=== PATIENT | male | born 1985 | race Caucasian/White ===

== ENCOUNTER → 2022-01-18 | Outpatient (CLI) | payer OTHER ==
[~2022-01-18] MED LIST: CEPH500 PO; CIPR500 PO; HYDACE5 PO; IBUP800 PO; Keflex500 MG PO; Mobic15 MG PO; OXYACE5T PO; PROM25 PO; TAMS.4ER PO
[2022-01-18 11:57] LABS: BASOPHILS ABSOLUTE AUTO 0.08 K/mm3 (0.00-0.23); BASOPHILS PERCENT AUTO 1 % (0-2); EOSINOPHILS ABSOLUTE AUTO 0.43 K/mm3 (0.00-0.68); EOSINOPHILS PERCENT AUTO 4 % (0-6); Hematocrit 32.2 % (37.0-53.0); Hemoglobin 10.4 g/dL (13.5-17.5); IMMATURE GRAN ABSOLUTE AUTO 0.05 K/mm3 (0.00-0.10); IMMATURE GRAN PERCENT AUTO 0 % (0-1); LYMPHOCYTES ABSOLUTE AUTO 1.48 K/mm3 (0.84-5.20); LYMPHOCYTES PERCENT AUTO 12 % (21-46); MONOCYTES ABSOLUTE AUTO 0.97 K/mm3 (0.16-1.47); MONOCYTES PERCENT AUTO 8 % (4-13); Mean Corpuscular HGB 24.8 pg (26.0-34.0); Mean Corpuscular HGB Conc 32.3 g/dL (31.5-36.5); Mean Corpuscular Volume 77 fL (80-100); Mean Platelet Volume 8.7 fL (9.1-12.4); NEUTROPHILS ABSOLUTE AUTO 9.44 K/mm3 (1.96-9.15); NEUTROPHILS PERCENT AUTO 76 % (41-73); Platelet Count 443 K/mm3 (150-400); RDW Coefficient Variation 13.7 % (11.7-14.2); RDW Standard Deviation 38.1 fL (35.1-46.3); Red Blood Cell Count 4.19 M/mm3 (4.30-5.90); White Blood Cell Count 12.45 K/mm3 (4.00-11.30)
[2022-01-18 12:06] LABS: Albumin, Blood 2.9 g/dL (3.4-5.0); Albumin/Globulin Ratio 0.6 (0.8-1.8); Bilirubin, Total 0.2 mg/dL (0.1-1.0); Bun/Creatinine Ratio 12.6 (12.0-20.0); Calcium, Blood 8.7 mg/dL (8.5-10.1); Creatinine, Blood 0.95 mg/dL (0.60-1.20); Globulin, Blood 4.7 g/dL (2.2-4.0); Potassium, Blood 4.2 mmol/L (3.5-5.5); Total Protein, Blood 7.6 g/dL (6.4-8.2)
== END ==
LOC: LAB SHORT 11:52
PROVIDERS: Physician Assistant
DX: R07.9 Chest pain, unspecified (principal); D72.829 Elevated white blood cell count, unspecified
CPT/HCPCS: 80053; 85025; 85060

== ENCOUNTER 2022-02-03 09:01 | Inpatient (IN) | payer OTHER ==
[~2022-02-03] VITALS: Ht 182.9 cm; Wt 64.5 kg
[2022-02-03 12:07] LABS: BASOPHILS ABSOLUTE AUTO 0.11 K/mm3 (0.00-0.23); BASOPHILS PERCENT AUTO 1 % (0-2); EOSINOPHILS ABSOLUTE AUTO 0.31 K/mm3 (0.00-0.68); EOSINOPHILS PERCENT AUTO 2 % (0-6); Hematocrit 28.4 % (37.0-53.0); Hemoglobin 9.2 g/dL (13.5-17.5); IMMATURE GRAN ABSOLUTE AUTO 0.11 K/mm3 (0.00-0.10); IMMATURE GRAN PERCENT AUTO 1 % (0-1); LYMPHOCYTES ABSOLUTE AUTO 0.87 K/mm3 (0.84-5.20); LYMPHOCYTES PERCENT AUTO 5 % (21-46); MONOCYTES ABSOLUTE AUTO 1.75 K/mm3 (0.16-1.47); MONOCYTES PERCENT AUTO 10 % (4-13); Mean Corpuscular HGB 23.8 pg (26.0-34.0); Mean Corpuscular HGB Conc 32.4 g/dL (31.5-36.5); Mean Corpuscular Volume 73 fL (80-100); Mean Platelet Volume 9.3 fL (9.1-12.4); NEUTROPHILS ABSOLUTE AUTO 14.78 K/mm3 (1.96-9.15); NEUTROPHILS PERCENT AUTO 82 % (41-73); Platelet Count 596 K/mm3 (150-400); RDW Coefficient Variation 14.2 % (11.7-14.2); RDW Standard Deviation 37.3 fL (35.1-46.3); Red Blood Cell Count 3.87 M/mm3 (4.30-5.90); White Blood Cell Count 17.93 K/mm3 (4.00-11.30)
[2022-02-03 12:24] LABS: Albumin, Blood 2.1 g/dL (3.4-5.0); Albumin/Globulin Ratio 0.5 (0.8-1.8); Bilirubin, Total 0.7 mg/dL (0.1-1.0); Bun/Creatinine Ratio 17.4 (12.0-20.0); Calcium, Blood 8.8 mg/dL (8.5-10.1); Creatinine, Blood 0.69 mg/dL (0.60-1.20); Globulin, Blood 4.3 g/dL (2.2-4.0); Potassium, Blood 3.6 mmol/L (3.5-5.5); Total Protein, Blood 6.4 g/dL (6.4-8.2)
[2022-02-03 16:35] LABS: Percent Saturation 5.7 % (20.0-50.0)
[2022-02-03 16:38] LABS: Automated BF RBC Count 0.248 M/mm3 (0-0); Automated BF WBC Count 2.741 K/mm3 (0-999)
[2022-02-03 16:39] LABS: Body Fluid WBC Count 2741 /mm3 (0-999); RBC Count, Body Fluid 248000 /mm3 (0-0)
[2022-02-03 16:58] LABS: Albumin, Body Fluid 1.8 g/dL; Glucose, Body Fluid 68 mg/dL; Protein, Body Fluid 4.5 g/dL
[2022-02-03 17:03] LABS: Lactate Dehydrogenase, Body Fl 2336 U/L
[2022-02-03 17:07] LABS: Amylase, Body Fluid 7 U/L
[2022-02-03 17:07] LABS: pH, Body Fluid 7.7
[2022-02-03 17:31] LABS: Automated BF RBC Count 0.046 M/mm3 (0-0); Automated BF WBC Count 5.696 K/mm3 (0-999)
[2022-02-03 17:46] LABS: Appearance, Body Fluid Turbid (Clear); Color, Body Fluid Red (None-Yellow); Total Cell Count, Body Fluid 200
[2022-02-03 17:47] LABS: Albumin, Body Fluid 1.8 g/dL; Glucose, Body Fluid 32 mg/dL; Lactate Dehydrogenase, Body Fl 846 U/L; Protein, Body Fluid 4.2 g/dL
[2022-02-03 17:53] LABS: Body Fluid WBC Count 5696 /mm3 (0-999); RBC Count, Body Fluid 46000 /mm3 (0-0)
[2022-02-03 17:54] LABS: Appearance, Body Fluid Cloudy (Clear); Color, Body Fluid Red (None-Yellow)
[2022-02-03 18:03] LABS: pH, Body Fluid 7.3
[2022-02-03 18:21] LABS: Total Cell Count, Body Fluid 100
--- NOTE | 2022-02-03 19:27 | NUR ---
SUMMARY NEURO: WNL, MUSK: GENERALIZEED WEAKNESS, LOW STAMINA LUNG: THORACENTESIS TODAY. FLUID SENT FOR PATHOLOGY. PT ON 4LNC. GI: PT STATES HASNT HAD A BM IN TWO WEEKS : PT STATES DARK NAVDEEP URINE RECENTLY CARD: SINUS TACH, FAINT RT TIBIAL PULSE. PERICARDIAL DRAIN IN PLACE.
--- NOTE | 2022-02-03 21:57 | NUR ---
UPDATE TALKED WITH DR GALO GIVING HIM AN UPDATE ON THE PATIENT. PT IS "FEELING BETTER", SOME DISCOMFORT AT DRAIN SITE WHEN COUGHING AND TENDER AROUND SITE BUT NO OTHER PAIN NOTED. PT STATES THAT HE CAN BREATH MORE EASILY BUT STILL HAS TROUBLE WHEN LAYING DOWN. ALSO, THE HOSPITALIST NOTE MENTIONED STARTING HEPARIN GTT FOR DVT, DISSCUSED THIS WITH DR GALO WHO STATED THAT HEPARIN NOT TO BE STARTED UNTIL AFTER THE PERICARDIAL DRAIN IS REMOVED.
--- NOTE | 2022-02-03 22:09 | NUR ---
ASSUMPTION OF CARE: ASSUMED CARE OF PT AT 1900. PT IS AWAKE AND A&O X 4; PT ON BEDREST AND COMPLIANT WITH ACTIVITY LIMITATIONS. PT ON 4 L O2 VIA NC WITH O2 LEVELS MAINTAINING 94<, AND RR 20-24. PT HAS NO C/O SOB AT THIS TIME. S1/S2 ASCULTATED; PT HAS NO C/O CHEST PAIN AT THIS TIME. HR IN THE 110'S AND SBP IN THE 120'S. THERE IS A PERICARDIAL DRAIN PRESENT; SITE LOOKS C/D/I. DRAIN IS PATENT AND DRAINING TO GRAVITY WITH 100 MLS OF SEROSANGANIOUS PRESENT. PT STATES THAT THERE IS TENDERNESS WHEN PALPATED AND PAIN WHEN COUGHING AT SITE. PT HAS HYPERACTIVE BS IN ALL QUADRANTS; NO C/O OF ABD PAIN OR N/V. PT HAS PPP X 4; ALL EXTREMITIES ARE WARM AND CAP REFIL REMAINS < 3 SECONDS. PT HAS FULL ROM. PT STATES INCREASING ACTIVITY INTOLERANCE OVER THE LAST COUPLE OF WEEKS. SCD PLACED TO THE LEFT CALF AT THIS TIME. PIV IN THE L&R FOREARM; FLUSHED WITH 10 ML SALINE AND CAPS REPLACED. TYRESE CHOU CALLED DR GALO TO CONFIRM WHETHER OR NOT HEPARIN WOULD BE INITIATED R/T R. LEG DVT; DR GALO DOES NOT WANT HEPARIN STARTED DUE TO PERICARDIAL DRAIN. PT RESTING AT THIS TIME AND CALL LIGHT WITHIN REACH. WILL CONTINUE TO MONITOR.
[2022-02-04 03:43] LABS: BASOPHILS ABSOLUTE AUTO 0.11 K/mm3 (0.00-0.23); BASOPHILS PERCENT AUTO 1 % (0-2); EOSINOPHILS ABSOLUTE AUTO 0.66 K/mm3 (0.00-0.68); EOSINOPHILS PERCENT AUTO 4 % (0-6); Hematocrit 30.7 % (37.0-53.0); Hemoglobin 10.2 g/dL (13.5-17.5); IMMATURE GRAN ABSOLUTE AUTO 0.11 K/mm3 (0.00-0.10); IMMATURE GRAN PERCENT AUTO 1 % (0-1); LYMPHOCYTES PERCENT AUTO 5 % (21-46); MONOCYTES ABSOLUTE AUTO 1.85 K/mm3 (0.16-1.47); MONOCYTES PERCENT AUTO 11 % (4-13); Mean Corpuscular HGB Conc 33.2 g/dL (31.5-36.5); Mean Corpuscular Volume 72 fL (80-100); NEUTROPHILS ABSOLUTE AUTO 13.63 K/mm3 (1.96-9.15); NEUTROPHILS PERCENT AUTO 79 % (41-73); Platelet Count 607 K/mm3 (150-400); RDW Coefficient Variation 14.2 % (11.7-14.2); RDW Standard Deviation 36.8 fL (35.1-46.3); Red Blood Cell Count 4.25 M/mm3 (4.30-5.90); White Blood Cell Count 17.26 K/mm3 (4.00-11.30)
[2022-02-04 04:05] LABS: Albumin, Blood 1.8 g/dL (3.4-5.0); Albumin/Globulin Ratio 0.4 (0.8-1.8); Bilirubin, Total 0.6 mg/dL (0.1-1.0); Creatinine, Blood 0.62 mg/dL (0.60-1.20); Globulin, Blood 4.4 g/dL (2.2-4.0); Potassium, Blood 3.8 mmol/L (3.5-5.5); Total Protein, Blood 6.2 g/dL (6.4-8.2)
--- NOTE | 2022-02-04 05:45 | NUR ---
SHIFT SUMMARY: NO ACUTE CHANGES THIS SHIFT. PT REMAINS A&O X 4, AND HAS NO C/O PAIN AT THIS TIME. PT WAS IN AND OUT OF SLEEP THROUGHOUT THE NIGHT WITH MODERATE DIAPHORESIS THROUGHOUT THE NIGHT. PT STATES THAT THIS IS WITHIN HIS NORMAL SLEEPING HABITS. PT HAS HAD GOOD URINE OUTPUT THIS SHIFT. PT REMAINS ON 4L O2 VIA NC; LUNG SOUNDS ARE CLEAR THROUGHOUT. PT HR IN THE 100'S AND SBP 110-120. PT ASKED ABOUT DISCAHRGING AND QUESTIONS ANSWERED ABOUT CRITERIA TO MEET BEFORE DISCHARGE CAN BE AN OPTION. WILL CONTINUE TO MONITOR UNTIL ONCOMING NURSE ARRIVES.
--- NOTE | 2022-02-04 07:15 | NUR ---
TOOK OVER CARE OF PT AT 0700, PT RESTING ON 4L NC, O2 SATS AT 90%
--- NOTE | 2022-02-04 11:10 | NUR ---
Supportive visit this AM. Pt resting in bed and appears mildly anxious. Pt reports bed being uncomfortable and is requesting to get out of bed. Reviewed plan of care and offered supportive listening. Spoke with Pt's Primary RN Cristin and discussed case. Relayed Pt's request to sit in chair. Palliative Care will remain available for supportive and therapeutic visits as needed.
[2022-02-04 11:44] LABS: Anti-Xa UFH, PHA Monitoring <0.10 IU/mL; International Normalized Ratio 1.35; Prothrombin Time Results 13.9 Sec (9.7-11.5)
--- NOTE | 2022-02-04 18:15 | NUR ---
SUMMARY NEURO: WNL CARD:SINUS TACH 100-110'S. PERICARDIAL DRAIN REMOVED THIS AM. RT TIBIAL PULSE FAINT, HEPARIN GTT STARTED WITH CARDIOLOGY APPROVAL. LUNGS: INTERMITTENT PLEURAL RUB SOUNDS IN RUL AND RLL. RML AND MARY CLEAR. LLL DIMINISHED. PT ON 5LNC THAT IS HUMIDIFIED. PT DENIES SOB. GI: NO BM TODAY, HYPOACTIVE BOWELS SOUNDS. VERY POOR APPETITE. PT ONLY ABLE TO TOLERATE A FEW BITES AT A TIME. ENCOURAGE NUTRITION SHAKES : WNL
--- NOTE | 2022-02-04 19:40 | NUR ---
ASSUMED CARE OF PT AT 1900. REPORT RECEIVED AT BEDSIDE. PT PRESENTS IN BED. ALERT AND ORIENTED. PLEASANT AND COOPERATIVE WITH CARE AND ASSESSMENT. IS MILDLY NAUSEAS, AND CLAIMS HE HAS SOME PAIN IN LEG AND BACK. WILL CHECK PRN EMAR FOR INTERVENTION. WILL REVIEW CHART AND PLAN OF CARE FOR THIS PT.
--- NOTE | 2022-02-05 00:40 | NUR ---
MEDICATED PT WITH 25 MCG FENTANYL FOR COMPLAINTS OF RIGHT CALF PAIN. PT DOES STATE THAT THE MAJORITY OF HIS PAIN COMES FROM HIS BACK AND NOT BEING ABLE TO GET COMFORTABLE IN BED. MULTIPLE ATTEMPTS TO GET PT REPOSITIONED WHEREAS HIS BACK PAIN WOULD NOT IMPROVE. DID OFFER PT TO BE IN RECLINER CHAIR. HE ACCEPTED. PIVOT TRANSFER TO RECLINER CHAIR. PT STATES THIS IS MUCH MORE COMFORTABLE FOR HIS BACK. CALL LIGHT GIVEN TO PT. HEPARIN CONTINUES PER PHARMACY. WILL DO RECHECK AT 0200 THIS AM.
[2022-02-05 02:01] LABS: BASOPHILS ABSOLUTE AUTO 0.08 K/mm3 (0.00-0.23); BASOPHILS PERCENT AUTO 1 % (0-2); EOSINOPHILS ABSOLUTE AUTO 0.59 K/mm3 (0.00-0.68); EOSINOPHILS PERCENT AUTO 3 % (0-6); Hematocrit 27.4 % (37.0-53.0); Hemoglobin 9.3 g/dL (13.5-17.5); IMMATURE GRAN ABSOLUTE AUTO 0.11 K/mm3 (0.00-0.10); IMMATURE GRAN PERCENT AUTO 1 % (0-1); LYMPHOCYTES ABSOLUTE AUTO 1.28 K/mm3 (0.84-5.20); LYMPHOCYTES PERCENT AUTO 7 % (21-46); MONOCYTES ABSOLUTE AUTO 1.59 K/mm3 (0.16-1.47); MONOCYTES PERCENT AUTO 9 % (4-13); Mean Corpuscular HGB 24.3 pg (26.0-34.0); Mean Corpuscular HGB Conc 33.9 g/dL (31.5-36.5); Mean Corpuscular Volume 72 fL (80-100); Mean Platelet Volume 8.8 fL (9.1-12.4); NEUTROPHILS ABSOLUTE AUTO 13.66 K/mm3 (1.96-9.15); NEUTROPHILS PERCENT AUTO 79 % (41-73); Platelet Count 610 K/mm3 (150-400); RDW Coefficient Variation 14.1 % (11.7-14.2); RDW Standard Deviation 35.9 fL (35.1-46.3); Red Blood Cell Count 3.82 M/mm3 (4.30-5.90); White Blood Cell Count 17.31 K/mm3 (4.00-11.30)
[2022-02-05 02:20] LABS: Albumin, Blood 1.7 g/dL (3.4-5.0); Anion Gap 7 mmol/L (6-16); Blood Urea Nitrogen 13 mg/dL (8-24); Bun/Creatinine Ratio 21.1 (12.0-20.0); CO2, Blood 24 mmol/L (21-32); Chloride, Blood 102 mmol/L (98-108); Creatinine, Blood 0.62 mg/dL (0.60-1.20); Glomerular Filtration Rate 129 (60-); Glucose, Blood 114 mg/dL (70-99); Phosphorus, Blood 3.1 mg/dL (2.5-4.9); Potassium, Blood 3.7 mmol/L (3.5-5.5); Sodium, Blood 133 mmol/L (136-145)
[2022-02-05] MEDS ORDERED: HYDROCODONE-AC1 EA18 PO (04:47)
--- NOTE | 2022-02-05 04:52 | NUR ---
CALL MADE TO DR SCHMITT CONCERNING CONTINUED PAIN IN RIGHT LEG, AND BACK. ORDER FOR 1 MG DILAUDID PRN AND OXYCONTIN SCHEDULED BID. TEACHING DONE WITH PT ON THIS PAIN MANAGEMENT REGIMINE, AND PRECAUTIONS WITH MEDS. ALSO SPOKE ABOUT POTENTIAL FOR CONSTIPATION. PT VERBALIZES UNDERSTANDING. MEDICATED PT WITH DILAUDID FOR IMMEDIATE RELIEF, AND WITH OXYCONTIN FOR CONTINUED RELIEF. PT STATES THAT THIS HAS BEEN VERY HELPFUL TO RELIEVE PAIN. PT CURRENTLY BACK TO BED. MADE USE OF ADDITIONAL PILLOWS FOR COMFORT. WILL CONTINUE TO MONITOR PT.
--- NOTE | 2022-02-05 06:38 | NUR ---
PT STATES THAT THE DILAUDID REMAINS VERY AFFECTIVE. HAS BEEN ABLE TO SLEEP SOME. NO OOZING OR HEMATOMA FROM PERICARDIAL ACCESS SITE. DRESSING REMAINS INTACT. THORACENTISIS SITE TO RIGHT POSTERIALATERAL SITE CDI. WILL CONTINUE TO MONITOR PT AND WILL REPORT OFF TO ONCOMING RN.
--- NOTE | 2022-02-05 09:02 | NUR ---
Care assumed 0700 Heparin GTT @ 24 U/KG/HR infusing via right forearm IV. A/O X 4. Calm/coopertive. Pt denies having pain at this time and is comfortable in bed. Denies SOB. Pericardial drain site dressing c/d/i. Currently refusing to wear left SCD due to discomfort. On 5 L via NC, SPO2 > 90%. NSR. VSS. Will continue to monitor. Call light within reach. Aggie, patients partner in room as well. All questions answered and updated on pt care.
--- NOTE | 2022-02-05 09:26 | NUR ---
Dose increase Heparin GTT New infusion rate 26 U/KG/HR with bolus of 1750 units. Verified with Verona Ross RN.
--- NOTE | 2022-02-05 09:48 | NUR ---
Provider visit ~ Dr. Patel Plan is to compelte biopsy tomorrow and determine treatment plan from there. Possible discharge after that. Pt would like to be discharged soon.
--- NOTE | 2022-02-05 18:34 | NUR ---
Shift Summary Heparin GTT 28 U/KG/HR, infusing via right forarm IV. Pt states having pain 5/10 once today in right leg, treated per emar. Offered bed bath and pt declined. Appears to be anxious about biopsy tomorrow in regards to pain, educated on pt receiving adequate pain management prior to biopsy. Pt states understanding. VSS. Partner, Aggie, at bedside throughout the day. Mother and step-father in to see patient, updated on care. Pt has poor PO intake, states, " I am just a picky eater." Offered snacks (pudding and ensure) throughout the day. VSS. Will report to nightshift.
--- NOTE | 2022-02-05 19:30 | NUR ---
ASSUMPTION OF CARE REPORT RECEIVED AT THE BEDSIDE WITH DAYSPAFT NURSE. PT PRESENTS IN BED. PT APPEARS PALE, BUT IS CALM AND PLEASANT/APPROPRIATE TO SITUATION. PT IS ALERT, ON 4-5LNC WITH RR EQUAL AND UNLABORED. PT HAS A SMALL DRESSING WHERE HIS PERICARDIAL DRAIN WAS. PT PALE, BUT STATES HE FEELS OK. PIV INFUSING HEPARIN GTT IN RIGHT ARM. ADDITIONAL PIV IN LEFT FA. PT VOIDING SPONTANEOUSLY AND IS ABLE TO TURN HIMSELF IN BED. VITALS ARE STABLE. WILL CONTINUE TO MONITOR.
[2022-02-06 03:47] LABS: BASOPHILS ABSOLUTE AUTO 0.09 K/mm3 (0.00-0.23); BASOPHILS PERCENT AUTO 1 % (0-2); EOSINOPHILS PERCENT AUTO 4 % (0-6); Hemoglobin 9.8 g/dL (13.5-17.5); IMMATURE GRAN ABSOLUTE AUTO 0.15 K/mm3 (0.00-0.10); IMMATURE GRAN PERCENT AUTO 1 % (0-1); LYMPHOCYTES ABSOLUTE AUTO 1.46 K/mm3 (0.84-5.20); LYMPHOCYTES PERCENT AUTO 9 % (21-46); MONOCYTES PERCENT AUTO 11 % (4-13); Mean Corpuscular HGB 23.4 pg (26.0-34.0); Mean Corpuscular HGB Conc 31.6 g/dL (31.5-36.5); Mean Corpuscular Volume 74 fL (80-100); Mean Platelet Volume 8.8 fL (9.1-12.4); NEUTROPHILS ABSOLUTE AUTO 12.11 K/mm3 (1.96-9.15); NEUTROPHILS PERCENT AUTO 74 % (41-73); Platelet Count 673 K/mm3 (150-400); RDW Coefficient Variation 14.2 % (11.7-14.2); RDW Standard Deviation 37.6 fL (35.1-46.3); Red Blood Cell Count 4.19 M/mm3 (4.30-5.90); White Blood Cell Count 16.31 K/mm3 (4.00-11.30)
[2022-02-06 04:18] LABS: Albumin, Blood 1.8 g/dL (3.4-5.0); Albumin/Globulin Ratio 0.4 (0.8-1.8); Bilirubin, Total 0.5 mg/dL (0.1-1.0); Bun/Creatinine Ratio 20.3 (12.0-20.0); Calcium, Blood 8.6 mg/dL (8.5-10.1); Creatinine, Blood 0.64 mg/dL (0.60-1.20); Globulin, Blood 4.6 g/dL (2.2-4.0); Potassium, Blood 4.1 mmol/L (3.5-5.5); Total Protein, Blood 6.4 g/dL (6.4-8.2)
--- NOTE | 2022-02-06 05:48 | NUR ---
SHIFT SUMMARY PT REMAINED STABLE THROUGHOUT THE NIGHT ON 4L NC. PT HAS SLEPT INTERMITTENTLY. PAIN HAS BEEN WELL CONTROLLED WITH OXY AND PRNS. PT STILL APPEARS PALE, SLIGHTLY TACHYPNEIC, BUT SATS REMAIN >93% HEPARIN GTT REMAINS AT 28 UNITS/KG/HR. ANTI-Xa HAS BEEN THERAPEUTIC X2 OVERNIGHT SO PATIENT WILL BE A DAILY CHECK ON ANTI-Xa. VITALS HAVE REMAINED STABLE, OTHERWISE PT HAD AN UNEVENTFUL NIGHT. WILL PASS REPORT OFF TO AM NURSE WHEN AVAILABLE.
--- NOTE | 2022-02-06 08:32 | NUR ---
INITIAL ASSESSMENT PATIETN ALERT AND ORIENTED X 4, AFEBRILE. PATIENT COMPLAINS OF R LEG AND BACK PAIN. PATIENT RECEIVING SCHEDULED PAIN MEDICATIONS. PATIENT HAS PRN PAIN MEDS AVAILABLE ON EMAR. PATIENT CALM AND COOPERATIVE. FLAT AFFECT NOTED. PATIENT CACHECTIC AND WEAK. PATIENT SATTING 90% AND GREATER ON RA. RHONCHI NOTED IN UPPER LOBES, DIM IN LOWER LOBES. MOIST COUGH NOTED. PATIENT IN ST, HR AT 100. SBP IN THE 1-TEENS. DVT TO R LEG PER REPORT. HYPERACTIVE BOWEL SOUNDS NOTED. PATIENT STATES LAST BM ON 02/02. PATIENT ON REGULAR DIET. PATIENT HAS POOR APPETITE. PATIENT USES URINAL INDEPENDENTLY TO VOID. SKIN PALE. TEGADERM TO LOWER MID CHEST. HEPARIN INFUSING AT 28 UNITS/ KG/ HOUR. BED LOW, CALL LIGHT IN REACH. GF AT BEDSIDE. WILL CONTINUE TO MONITOR PATIENT FREQUENTLY THROUGHOUT SHIFT.
--- NOTE | 2022-02-06 12:00 | NUR ---
PATIENT AFEBRILE. HR IN THE 90S. SBP IN THE 1-TEENS. NO COMPLAINTS AT THIS TIME. WILL CONTINUE TO MONITOR.
--- NOTE | 2022-02-06 12:31 | NUR ---
SPOKE TO DR. LEO ABOUT PATIENT NOT HAVING BM FOR 4 DAYS NOW. ORDERS RECEIVED FOR MEDICATION.
--- NOTE | 2022-02-06 16:40 | NUR ---
PATIENT HAS TEMP OF 99.1 DEGREES FAHRENHEIT. HR AT 100. SBP IN THE 1-TEENS. PATIENT SATTING 90% AND GREATER ON 2 L NC. NO OTHER ACUTE CHANGES TO NOTE ON AT THIS TIME. NO COMPLAINTS. WILL CONTINUE TO MONITOR.
--- NOTE | 2022-02-06 17:58 | NUR ---
SHIFT SUMMARY PATIENT REMAINED ALERT AND ORIENTED X 4. PATIENT REMAINED CALM , COOPERTIVE AND WITH FLAT AFFECT. PATIENT REMAINED WEAK BUT ABLE TO MOVE TO CHAIR WITH 1 PA. PHYSICAL THERAPY WORKED WITH PATIENT THIS SHIFT. PATIENT HAD TMAX OF 99.1 DEGREES FAHRENHEIT THIS SHIFT. PAIN SEEMED WELL CONTROLLED BY SCHEDULED OXY. PATIENT DECREASED FROM 4 L NC TO 2 L NC AND REMAINS SATTING 90% AND GREATER. PATIENT REMAINED SR TO ST, HR 90S TO LOW 100S. SBP 1-TEENS TO 120S. PATIENT REMAINS WITH POOR APPETITE. NUTRITION CONSULT ORDERED THIS SHIFT AND THEY DID GET IN TO SEE PATIENT. NO BM THIS SHIFT FOR SINCE 02/02. BOWEL CARE ORDERED THIS SHIFT AND STARTED. GOOD URINE OUTPUT THIS SHIFT. HEPARIN REMAINS AT 28 UNITS/ KG/ HOUR. PATIENT REFUSED CHAIR MOST OF THE DAY AND REFUSED BED BATH. PATIENT HAD LYMPNODE BIOPSY TODAY. NO COMPLAINTS AT THIS TIME. CALL LIGHT IN REACH. PATIENT WILL BE TRANSFERRING TO PCU, ROOM 18 SHORTLY.
--- NOTE | 2022-02-06 18:24 | NUR ---
PATIENT SUCCESSFULLY TRANSFERRED TO PCU. ALL BELONGINGS SENT WITH PATIENT.
--- NOTE | 2022-02-06 18:51 | NUR ---
TRANSFER/ASSUMPTION OF CARE: PT TRANSFERED TO PCU FROM ICU, ARRIVES APPROX 1825. PT TRANSFERS SELF FROM W/C TO BEDSIDE CHAIR W/OUT DIFFICULTY. PT ORIENTED TO ROOM. HEPARIN INFUSING PER ORDERS. WILL CONTINUE TO MONITOR AND TREAT ACCORDINGLY UNTIL CHANGE OF SHIFT.
[2022-02-07 03:09] LABS: BASOPHILS ABSOLUTE AUTO 0.09 K/mm3 (0.00-0.23); BASOPHILS PERCENT AUTO 1 % (0-2); EOSINOPHILS PERCENT AUTO 3 % (0-6); Hematocrit 30.6 % (37.0-53.0); IMMATURE GRAN ABSOLUTE AUTO 0.12 K/mm3 (0.00-0.10); IMMATURE GRAN PERCENT AUTO 1 % (0-1); LYMPHOCYTES ABSOLUTE AUTO 1.31 K/mm3 (0.84-5.20); LYMPHOCYTES PERCENT AUTO 9 % (21-46); MONOCYTES ABSOLUTE AUTO 1.72 K/mm3 (0.16-1.47); MONOCYTES PERCENT AUTO 12 % (4-13); Mean Corpuscular HGB 23.9 pg (26.0-34.0); Mean Corpuscular HGB Conc 32.7 g/dL (31.5-36.5); Mean Corpuscular Volume 73 fL (80-100); Mean Platelet Volume 8.5 fL (9.1-12.4); NEUTROPHILS ABSOLUTE AUTO 10.95 K/mm3 (1.96-9.15); NEUTROPHILS PERCENT AUTO 75 % (41-73); Platelet Count 634 K/mm3 (150-400); RDW Coefficient Variation 14.3 % (11.7-14.2); RDW Standard Deviation 37.3 fL (35.1-46.3); Red Blood Cell Count 4.19 M/mm3 (4.30-5.90); White Blood Cell Count 14.69 K/mm3 (4.00-11.30)
[2022-02-07 04:14] LABS: Albumin, Blood 1.9 g/dL (3.4-5.0); Albumin/Globulin Ratio 0.4 (0.8-1.8); Bilirubin, Total 0.4 mg/dL (0.1-1.0); Bun/Creatinine Ratio 15.3 (12.0-20.0); Calcium, Blood 9.2 mg/dL (8.5-10.1); Creatinine, Blood 0.85 mg/dL (0.60-1.20); Globulin, Blood 4.8 g/dL (2.2-4.0); Potassium, Blood 4.6 mmol/L (3.5-5.5); Total Protein, Blood 6.7 g/dL (6.4-8.2)
--- NOTE | 2022-02-07 06:32 | NUR ---
SHIFT SUMMARY PT ALERT AND ORIENTED X4. NO ACUTE EVENTS OVERNIGHT. BP STABLE. AFEBRILE. SR/ST 90-100'S. ON 2L NC SATS OVER 92%. PARTNER IN ROOM OVERNIGHT. ADEQUATE PAIN CONTROL WITH SCHEDULED OXYCODONE. RESTING COMFORTABLE MOST OF NIGHT. HEP GTT INFUSING. IN BED SLEEPING WITH CALL ALARM AT SIDE. WILL CONTINUE TO MONITOR UNTIL REPORT GIVEN TO DAYSHIFT RN
[2022-02-07] MEDS ORDERED: OXYC10ER PO (09:44)
[2022-02-07] MEDS ORDERED: ALBU2.5V5 INH (09:44)
[2022-02-07] MEDS ORDERED: DOCUZEN 8.6-501 EACH PO (09:44)
[2022-02-07] MEDS ORDERED: METAMUCIL POWD798 GM PO (09:45)
[2022-02-07] MEDS ORDERED: XARELTO15 MG PO (09:47)
[2022-02-07] MEDS ORDERED: XARELTO20 MG PO (09:47)
[2022-02-07] MEDS ORDERED: ALBU90OI INH (10:49)
--- NOTE | 2022-02-07 11:34 | NUR ---
PT PENDING DISCHARGE. IVS AND TELE HAVE BEEN DISCONTINUED. HE IS AWAITING DELIVERY OF WALKER TO ROOM BY MARCELLO. PT S.O. AT BEDSIDE. NO ACUTE DISTRESS.
--- NOTE | 2022-02-07 12:01 | NUR ---
UPDATE: PT COMES OUT OF HIS ROOM, STATES "I DON'T WANT TO WAIT ANYMORE FOR THE WALKER TO BE DELIVERED. MY MOM IS OUTSIDE WAITING FOR ME AND WE HAVE A WALKER AT HOME I CAN USE". THIS RN OBTAINS HOME ADDRESS FOR POTENTIAL WALKER DELIVERY, [facility] HAS BEEN NOTIFIED VIA TELEPHONE CALL. PT AMBULATES FROM UNIT W/OUT INCIDENT.
[2022-02-14] MEDS ORDERED: OXAYDO5 M1 PO (20:27)
[2022-02-21] MEDS ORDERED: Nicoderm Cq1 EAC1 TOP (09:09)
[2022-02-21] MEDS ORDERED: MIRALAX17 GM PO (09:10)
[2022-02-21] MEDS ORDERED: PANT40 PO (09:10)
[2022-02-21] MEDS ORDERED: SODCHL1 PO (09:11)
[2022-02-21] MEDS ORDERED: BUME1 PO (09:11)
== END 2022-02-07 11:54 | disposition home or self-care (01) | DRG 829 ==
LOC: ER 09:01 → ICUW 14:52 → PCU 02-06 17:35
PROVIDERS: Emergency Medicine; Internal Medicine; Internal Medicine Cardiovascular Disease; Student in an Organized Health Care Education/Training Program; ADMIT Internal Medicine
PROC: 0W9930Z Drainage of Right Pleural Cavity with Drainage Device, Percutaneous Approach (ICD-10-PCS; principal; 2022-02-03)
PROC: 0W993ZX Drainage of Right Pleural Cavity, Percutaneous Approach, Diagnostic (ICD-10-PCS; 2022-02-03)
PROC: 0W9D30Z Drainage of Pericardial Cavity with Drainage Device, Percutaneous Approach (ICD-10-PCS; 2022-02-03)
PROC: 0W9D3ZX Drainage of Pericardial Cavity, Percutaneous Approach, Diagnostic (ICD-10-PCS; 2022-02-03)
PROC: 07B13ZX Excision of Right Neck Lymphatic, Percutaneous Approach, Diagnostic (ICD-10-PCS; 2022-02-06)
DX: C79.89 Secondary malignant neoplasm of other specified sites (principal); J96.01 Acute respiratory failure with hypoxia; C34.90 Malignant neoplasm of unspecified part of unspecified bronchus or lung; C77.0 Secondary and unspecified malignant neoplasm of lymph nodes of head, face and neck; E87.1 Hypo-osmolality and hyponatremia; I82.4Z1 Acute embolism and thrombosis of unspecified deep veins of right distal lower extremity; R65.10 Systemic inflammatory response syndrome (SIRS) of non-infectious origin without acute organ dysfunction; Z51.5 Encounter for palliative care; J91.0 Malignant pleural effusion; C78.2 Secondary malignant neoplasm of pleura; F17.210 Nicotine dependence, cigarettes, uncomplicated; D63.8 Anemia in other chronic diseases classified elsewhere; Z88.0 Allergy status to penicillin
CPT/HCPCS: 32555; 33016; 36415; 38505; 71045; 71260; 76937; 76942; 80053; 80069; 82042; 82150; 82607; 82728; 82746; 82945; 83540; 83550; 83615; 83690; 83986; 84157; 85025; 85520; 85610; 85730; 87070; 87102; 87205; 87252; 87254; 88108; 88305; 88341; 88342; 89051; 93306; 93308; 93321; 93971; 94664; 94761; 94762; 97110; 97162; 99152; 99153; 99285-25; A9270; C1729; C1769; C1894; J0690; J1170; J1644; J2060; J2250; J3010; J7030; J7040; Q9967

== ENCOUNTER 2022-02-14 05:51 | Inpatient (IN) | payer OTHER ==
[~2022-02-14] VITALS: Ht 182.9 cm; Wt 62.1 kg
[~2022-02-14 05:51] MED LIST changes: +ALBU2.5V5 INH; +ALBU90OI INH; +DOCUZEN 8.6-501 EACH PO; +HYDROCODONE-AC1 EA18 PO; +METAMUCIL POWD798 GM PO; +OXYC10ER PO; +XARELTO15 MG PO; +XARELTO20 MG PO
[2022-02-14 07:51] LABS: BASOPHILS ABSOLUTE AUTO 0.06 K/mm3 (0.00-0.23); BASOPHILS PERCENT AUTO 0 % (0-2); EOSINOPHILS ABSOLUTE AUTO 0.27 K/mm3 (0.00-0.68); EOSINOPHILS PERCENT AUTO 1 % (0-6); Hematocrit 27.6 % (37.0-53.0); Hemoglobin 8.8 g/dL (13.5-17.5); IMMATURE GRAN ABSOLUTE AUTO 0.16 K/mm3 (0.00-0.10); IMMATURE GRAN PERCENT AUTO 1 % (0-1); LYMPHOCYTES ABSOLUTE AUTO 0.86 K/mm3 (0.84-5.20); LYMPHOCYTES PERCENT AUTO 4 % (21-46); MONOCYTES ABSOLUTE AUTO 2.25 K/mm3 (0.16-1.47); MONOCYTES PERCENT AUTO 11 % (4-13); Mean Corpuscular HGB Conc 31.9 g/dL (31.5-36.5); Mean Corpuscular Volume 72 fL (80-100); Mean Platelet Volume 8.7 fL (9.1-12.4); NEUTROPHILS ABSOLUTE AUTO 17.02 K/mm3 (1.96-9.15); NEUTROPHILS PERCENT AUTO 83 % (41-73); Platelet Count 611 K/mm3 (150-400); RDW Coefficient Variation 14.6 % (11.7-14.2); RDW Standard Deviation 37.5 fL (35.1-46.3); Red Blood Cell Count 3.82 M/mm3 (4.30-5.90); White Blood Cell Count 20.62 K/mm3 (4.00-11.30)
[2022-02-14 08:09] LABS: Albumin, Blood 1.9 g/dL (3.4-5.0); Albumin/Globulin Ratio 0.4 (0.8-1.8); Bilirubin, Total 0.5 mg/dL (0.1-1.0); Bun/Creatinine Ratio 24.4 (12.0-20.0); Calcium, Blood 8.7 mg/dL (8.5-10.1); Creatinine, Blood 0.66 mg/dL (0.60-1.20); Magnesium, Blood 2.1 mg/dL (1.6-2.4); Potassium, Blood 4.3 mmol/L (3.5-5.5); Total Protein, Blood 6.9 g/dL (6.4-8.2)
[2022-02-14 08:35] LABS: Influenza A, PCR NEGATIVE (NEGATIVE); Influenza B, PCR NEGATIVE (NEGATIVE); Resp Syncytial Virus, PCR NEGATIVE (NEGATIVE); SARS-Cov-2 (COVID-19) PCR, MMC NEGATIVE (NEGATIVE)
[2022-02-14 10:23] LABS: International Normalized Ratio 1.42; Prothrombin Time Results 14.6 Sec (9.7-11.5)
--- NOTE | 2022-02-14 14:50 | NUR ---
Pt is a 36 y.o. male with new diagnoses of lung cancer. He participated in an initial interview with me today, and was alert, oriented and pleasant. He does admit to feeling "scared", and also states he just found out officially today that it is cancer "for sure". He states he doesn't know what stage or "how bad" it is. He lives at home with his grandmother, mom and s/o Aggie. Pt is having a chest tube placed today, and is eager to begin a pain medication regimen. He is cachectic, states he has a poor appetite and little energy. He is currently using oxygen, he reports he was in ICU last week, returned to ED today due to increased SOB. No treatment plan has been established yet per pt; he states he's looking forward to being started on a treatment plan with Dr. Ray's office. Pt is open to continuing visits with Palliative care. He may be d/c'd home tomorrow if he tolerates chest tube and SOB has improved. My concern is the pt is unaware of the extent of his illness, due in part to low medical literacy. Will discuss this with Dr. Griffiths today.
--- NOTE | 2022-02-14 16:03 | NUR ---
Spiritual Care attempted. Pt. was meeting with Care Management. Family members are present. Will remain available to Pt.
--- NOTE | 2022-02-14 16:52 | NUR ---
Collaberated with Dr. Arce' office and Dr. Griffiths this afternoon. Concerns discussed, and Dr. Arce recommending continue current plan of care, and is awaiting results of genetic testing to determine treatment plan. Prognostication based on current clinical status: KPS: 40% NYHA: Class IV Albumin: 1.9 BMI: 18.5 (6ft tall 136lbs) Pt is at high risk for readmission.
--- NOTE | 2022-02-14 19:28 | NUR ---
SHIFT SUMMARY 1130 RECEIVED PT TO 337 VIA GURNEY FROM ER. ADMITTED FOR BL PLEURAL EFFUSIONS AND SOB. PER REPORT FROM DARLENE CHOU, PT RECENTLY IN ICU FOR FLUID AROUND THE LUNGS AND HEART. NEW DX OF LUNG CA. CANCER NOT STAGED YET AND NO TX STARTED. DR JAMES AND DR HUYNH TO COME IN TOMORROW AND DISCUSS NEXT STEPS IN PLAN OF CARE WITH PT AND FAMILY. PT WAS TO HAVE HAD A CHEST TUBE PLACED TO L SIDE, BUT DR JAMES UNABLE TO CONNECT WITH IR TO GET SET UP. DR LI, FROM PULMONOLOGY ALSO IN TO SEE PT FOR A WHILE THIS AFTERNOON. DR BENSON FROM SX IN TO SEE PT PRIOR TO DR LI. NO SX INTERVENTION TO BE DONE AT THIS TIME. PT RECEIVED ROCEPHIN IN ER AND AZITHROMYCIN INFUSING WHEN COMING TO . HEPARIN DRIP STARTED WHEN IV ABX COMPLETE. XARELTO HELD PER REPORT, D/T POSSIBLE PROCEDURE AND HEPARIN DRIP STARTED. PT IS A&O, PLEASANT AND CO-OP. FAMILY IN TO VISIT THIS AFTERNOON UNTIL JUST RECENTLY. PT FINALLY ABLE TO EAT, PER DR JAMES. DURING B/S SHIFT REPORT, PT REQUESTING PAIN MEDICATION. ONCPREMA RN TO F/U. REPORT GIVEN TO ONCOMING RN'S. CALL LT IN REACH.
[2022-02-14] MEDS ORDERED: OXAYDO5 M1 PO ×2 (20:27)
--- NOTE | 2022-02-14 21:35 | NUR ---
PT REPORTS 10/10 CHEST/LUNG PAIN. ALERTED AND NEW ORDER RECIEVED FOR FENTANYL 25MCG IV NOW AND OK'D TO REPEAT X1 DOSE IF UNRELIEVED. WILL ADMINISTER AND EVALUATE FOR EFFECT.
[2022-02-15 00:25] LABS: BASOPHILS ABSOLUTE AUTO 0.07 K/mm3 (0.00-0.23); BASOPHILS PERCENT AUTO 0 % (0-2); EOSINOPHILS ABSOLUTE AUTO 0.26 K/mm3 (0.00-0.68); EOSINOPHILS PERCENT AUTO 1 % (0-6); Hematocrit 27.4 % (37.0-53.0); Hemoglobin 8.9 g/dL (13.5-17.5); IMMATURE GRAN ABSOLUTE AUTO 0.13 K/mm3 (0.00-0.10); IMMATURE GRAN PERCENT AUTO 1 % (0-1); LYMPHOCYTES ABSOLUTE AUTO 1.18 K/mm3 (0.84-5.20); LYMPHOCYTES PERCENT AUTO 6 % (21-46); MONOCYTES ABSOLUTE AUTO 2.19 K/mm3 (0.16-1.47); MONOCYTES PERCENT AUTO 11 % (4-13); Mean Corpuscular HGB 23.4 pg (26.0-34.0); Mean Corpuscular HGB Conc 32.5 g/dL (31.5-36.5); Mean Corpuscular Volume 72 fL (80-100); Mean Platelet Volume 8.8 fL (9.1-12.4); NEUTROPHILS ABSOLUTE AUTO 16.85 K/mm3 (1.96-9.15); NEUTROPHILS PERCENT AUTO 82 % (41-73); Platelet Count 644 K/mm3 (150-400); RDW Coefficient Variation 14.6 % (11.7-14.2); RDW Standard Deviation 37.7 fL (35.1-46.3); White Blood Cell Count 20.68 K/mm3 (4.00-11.30)
--- NOTE | 2022-02-15 00:30 | NUR ---
PAIN RELIEVED TEMPORARILY FROM 1ST DOSE FENTANYL, REPEAT DOSE X1 RX'D AND ADMINISTERED, AWAITING EFFECT.
[2022-02-15 00:44] LABS: Albumin, Blood 1.9 g/dL (3.4-5.0); Albumin/Globulin Ratio 0.4 (0.8-1.8); Bilirubin, Total 0.5 mg/dL (0.1-1.0); Bun/Creatinine Ratio 28.4 (12.0-20.0); Calcium, Blood 8.7 mg/dL (8.5-10.1); Creatinine, Blood 0.6 mg/dL (0.60-1.20); Potassium, Blood 4.2 mmol/L (3.5-5.5); Total Protein, Blood 6.9 g/dL (6.4-8.2)
--- NOTE | 2022-02-15 04:20 | NUR ---
SUMMARY: PT A/OX4, CALLS APPROPRIATELY TO SPECIFY NEEDS AND IS SBA IN ROOM. PHARMACY MANAGING HEPARIN GTT, CURRENT RATE IS 24 UN/KG/HR (30.2 ML/HR) AND X2 BOLUSES RECIEVED T/O NOCTE PER EMAR. FENTANYL X2 DOSES, SCHEDULED OXYCONTIN AND PRN OXYCODONE PROVIDED FOR TOLERABLE RELIEF OF CHEST/LUNG PAIN. LS CLEAR T/O AND MORE DIMINISHED TO L.LOBE D/T PLEURAL EFFUSION. SPO2 WNL ON 4L HUMIDIFIED O2 VIA NC. HE REMAINS S.TACH ON TELE AT 1TEENS BPM. NO ACUTE CHANGES, VSS/AFEBRILE. POSSIBLE CHEST TUBE PLACEMENT TODAY. PULM, SURGERY AND ONCOLOGY CONSULTING. WCTM AND REPORT TO DAY RN.
--- NOTE | 2022-02-15 12:20 | NUR ---
SPOKE WITH RESTARTED HEPARIN AND VERIFED BODY FLUID TAKEN FROM THORACENTISIS WAS THERAPUTIC. REPORT THIS ORDER TO LAB
--- NOTE | 2022-02-15 13:19 | NUR ---
Spiritual Care Visit. Pt. is wake in bed and welcomed my visit. Pts. girlfriend is present. Pt. is pleasant and has no sigificant concerns. Pt. updated this engineer technician on his condition and has no additional concerns. Listened empathetically and established some basic rapport. Pt. displayed evidence of engagement and awareness of his prognosis with a positive demeanor. Pt. verbalized gratitude for the spiritual care visit.
--- NOTE | 2022-02-15 16:31 | NUR ---
Met with pt today at bedside. I read in his progress note that he was unable to fill his oxycontin at last hospital discharge, and pt reports it's because his insurance wouldn't agree to cover it. Checked with [facility] with pt's permission, they report his long acting pain medication was in fact declined due to no prior authorization. However, his PCP Dr. Rosales is currently working on the prior auth, so he will be able to get adequate pain relief when he discharges home this time.
--- NOTE | 2022-02-15 18:26 | NUR ---
SHIFT SUMMARY- PT HAD PROCEDURE TODAY, TOLARATED AFTER CARE WELL. C/O OF PAIN, SPOKE WITH DR, TREATED PER EMAR. PT WITH FAMILY AT BEDSIDE. SOB WITH ACTIVTY SOME PAIN IN CHEST AFTER PROCEDURE BUT REPORTS AN IMPROVEMENT. APPETITE OK. HEPARIN DRIP RUNNING PRESCRIBED. CALL LIGHT WITHIN REACH.
[2022-02-16 03:04] LABS: BASOPHILS ABSOLUTE AUTO 0.05 K/mm3 (0.00-0.23); BASOPHILS PERCENT AUTO 0 % (0-2); EOSINOPHILS ABSOLUTE AUTO 0.22 K/mm3 (0.00-0.68); EOSINOPHILS PERCENT AUTO 1 % (0-6); Hematocrit 28.1 % (37.0-53.0); Hemoglobin 8.8 g/dL (13.5-17.5); IMMATURE GRAN ABSOLUTE AUTO 0.13 K/mm3 (0.00-0.10); IMMATURE GRAN PERCENT AUTO 1 % (0-1); LYMPHOCYTES ABSOLUTE AUTO 1.19 K/mm3 (0.84-5.20); LYMPHOCYTES PERCENT AUTO 6 % (21-46); MONOCYTES ABSOLUTE AUTO 1.95 K/mm3 (0.16-1.47); MONOCYTES PERCENT AUTO 10 % (4-13); Mean Corpuscular HGB Conc 31.3 g/dL (31.5-36.5); Mean Corpuscular Volume 73 fL (80-100); Mean Platelet Volume 8.7 fL (9.1-12.4); NEUTROPHILS ABSOLUTE AUTO 15.23 K/mm3 (1.96-9.15); NEUTROPHILS PERCENT AUTO 81 % (41-73); Platelet Count 605 K/mm3 (150-400); RDW Coefficient Variation 14.6 % (11.7-14.2); RDW Standard Deviation 38.3 fL (35.1-46.3); Red Blood Cell Count 3.83 M/mm3 (4.30-5.90); White Blood Cell Count 18.77 K/mm3 (4.00-11.30)
[2022-02-16 03:21] LABS: Albumin/Globulin Ratio 0.4 (0.8-1.8); Bilirubin, Total 0.3 mg/dL (0.1-1.0); Bun/Creatinine Ratio 21.3 (12.0-20.0); Calcium, Blood 8.6 mg/dL (8.5-10.1); Creatinine, Blood 0.75 mg/dL (0.60-1.20); Globulin, Blood 4.6 g/dL (2.2-4.0); Potassium, Blood 4.2 mmol/L (3.5-5.5); Total Protein, Blood 6.6 g/dL (6.4-8.2)
--- NOTE | 2022-02-16 03:48 | NUR ---
HEPARIN GTT INCREASED TO 32U/KG/HR FOR A RATE OF 40.3 ML/HR PER PHARMACY AT THIS TIME.
--- NOTE | 2022-02-16 03:53 | NUR ---
SHIFT SUMMARY: PATIENT A&O X4, PLEASANT AND COOPERATIVE WITH CARE, USES URINAL AT BEDSIDE, CALLS APPROPRIATELY. SOME L LEG WEAKNESS PATIENT STATES IS NORMAL. O2 SATS >92% ON 5L NC, TACHYCARDIC, AFEBRILE. MEDICATED PER EMAR. HEPARIN INFUSING PER PHARMACY. BED LOW WITH CALL LIGHT IN PLACE. NO ADVERSE EVENTS AT THIS TIME. WILL CONTINUE TO MONITOR AND UNTIL REPORT TO DAY RN.
--- NOTE | 2022-02-16 17:46 | NUR ---
SHIFT SUMMARY- PT A/O4, PT WITH WEAKNESS BUT INDEP UP IN ROOM, FIANCE OCCASIONALLY ASSISTS HIM. PT MEDICATED WITH SCHEDULED OXYCONTIN. LS DIMINISHED, ON 4L N/C, PT REPORTS PRODUCTIVE COUGH WITH BROWN SPUTUM, SOB WITH EXERTION . TELE ST 113 BUT DID INCREASE INTO 130 WITH EXERTION. PT/OT ORDERED. HEPARIN GTT INFUSING. NO OTHER ACUTE CHANGES THIS SHIFT.
[2022-02-17 06:22] LABS: BASOPHILS ABSOLUTE AUTO 0.05 K/mm3 (0.00-0.23); BASOPHILS PERCENT AUTO 0 % (0-2); EOSINOPHILS ABSOLUTE AUTO 0.35 K/mm3 (0.00-0.68); EOSINOPHILS PERCENT AUTO 2 % (0-6); Hematocrit 25.4 % (37.0-53.0); Hemoglobin 8.3 g/dL (13.5-17.5); IMMATURE GRAN PERCENT AUTO 1 % (0-1); LYMPHOCYTES PERCENT AUTO 8 % (21-46); MONOCYTES ABSOLUTE AUTO 1.91 K/mm3 (0.16-1.47); MONOCYTES PERCENT AUTO 11 % (4-13); Mean Corpuscular HGB 23.8 pg (26.0-34.0); Mean Corpuscular HGB Conc 32.7 g/dL (31.5-36.5); Mean Corpuscular Volume 73 fL (80-100); Mean Platelet Volume 8.5 fL (9.1-12.4); NEUTROPHILS ABSOLUTE AUTO 13.56 K/mm3 (1.96-9.15); NEUTROPHILS PERCENT AUTO 79 % (41-73); Platelet Count 572 K/mm3 (150-400); RDW Coefficient Variation 14.7 % (11.7-14.2); RDW Standard Deviation 38.7 fL (35.1-46.3); Red Blood Cell Count 3.49 M/mm3 (4.30-5.90); White Blood Cell Count 17.27 K/mm3 (4.00-11.30)
[2022-02-17 06:41] LABS: Albumin, Blood 1.8 g/dL (3.4-5.0); Anion Gap 10 mmol/L (6-16); Blood Urea Nitrogen 12 mg/dL (8-24); Bun/Creatinine Ratio 20.9 (12.0-20.0); CO2, Blood 24 mmol/L (21-32); Calcium, Blood 8.8 mg/dL (8.5-10.1); Chloride, Blood 97 mmol/L (98-108); Creatinine, Blood 0.57 mg/dL (0.60-1.20); Glomerular Filtration Rate 132 (60-); Glucose, Blood 102 mg/dL (70-99); Sodium, Blood 131 mmol/L (136-145)
--- NOTE | 2022-02-17 08:26 | NUR ---
ABRADING MACHINE TENDER SUMMARY patient is alert and oriented X4. oob independently in room. wearing 4L 02 via high flow cannula. Pt was able to shower with assist from alida Marcial. Pain managed by scheduled oxycontin. patient never required any medication for breakthrough. Heparin remains subtheraputic with current rate increased to 36 units/kg/hour or 45.4 ml/hr. dosage increased with assist of oncoming RN.
--- NOTE | 2022-02-17 21:57 | NUR ---
just after the shift change, i was called into Gardner's room as he was feeling suddenly SOB to the point of not being able to speak more than 1-2 words at a time. 02 increased from 4L to 5.5 via high flow nasal cannula. Hospitalist notified of situation, and a stat portable CXR as well as 40mg IV Lasix to be given STAT.. Within 35 minutes of receiving the Lasix. patient had voided over 1200ml pale yellow urine and breathing was (although shallow) back to his baseline prior to the event. 02 decreased back to 4L via Nasal Cannula. Still awaiting the results of stat CXR. will continue close monitoring.
--- NOTE | 2022-02-18 18:21 | NUR ---
ALERT AND ORIENTED X4, MAKES NEEDS KNOWN, CALL LIGHT WITH IN REACH, INDEPEDENT IN ROOM, GIRLFRIEND VALDEZ HELPFUL AT BEDSIDE, HEPARIN GTT INFUSING, PHARMACY CALCULATING DOSE FOR ML/HR, PRESENTLY AT 51.7 ML/HR, NEXT PTT AT 1900. LS DIMINSHED, SHALLOW, EASILY SOB, SATS 90-96% 4L O2. CALL LIGHT WITH IN REACH, WC
--- NOTE | 2022-02-18 19:47 | NUR ---
patient feeling very SOB. feeling like he can only get a "half a breath". very similar to event same time previous night. MD notified prior to shift change. STAT portable CXR completed. 2nd call to hospitalist. Respiratory rate now 24. patient appears to be quietly panting. Order for stat abg's and 40mg iv lasix now. Also, patient has agreed to try CPAP tonight. Order obtained and RT notified when ABG order called to him. will continue close monitoring
--- NOTE | 2022-02-18 21:12 | NUR ---
patient unable to tolerate cpap mask. refused. since receiving IV dose of Lasix, urine output between 0205-2024 is 1000ml. 02 decreased to 4L high flow nasal cannula. Per RT, he did not feel the patient needed ABG's at this time. Will continue close monitoring and notify night hospitalist of patient's response to treatment.
--- NOTE | 2022-02-19 05:39 | NUR ---
ZBIGNIEW HAD AN EVENTFUL EVENING WITH ACUTE ONSET OF INCREASED SOB. HE AGAIN FELT IF HE COULDN'T BREATH, AND APPEARED TO ALMOST BE PANTING AND VERY ANXIOUS. A&OX4, UP INDEPENDENTLY IN ROOM. SUPPORTIVE FIANCE (VALDEZ) ASSISTS WITH ALL PATIENT NEEDS. 40 OF LASIX GIVEN WITH AN 16OO INITIAL OUTPUT WITHIN ONE HOUR OF MEDICATION. PATIENT LOOKED AND FELT MUCH BETTER. ZBIGNIEW REFUSED CPAP AFTER HOLDING MASK TO FACE BRIEFLY. ORDERED ABG WAS DECLINED BY PATIENT AND WAS ALSO FELT BY RT TO AN NOT NECESSARY AT THAT TIME FOR THE PATIENT. SINGLE DOSE OF FENTANYL 25MCG GIVEN MIDDLE OF NIGHT FOR BREAKTHROUGH BACK PAIN WITH GOOD RESULT. PATIENT REMAINS SUBTHERAPUTIC ON HIS HEPARIN. NEXT PTT SCHEDULED FOR 0700. (CURRENTLY RUNNING AT 42 UNITS/KG/HOUR OR 52.9 ML/HOUR.
--- NOTE | 2022-02-19 19:04 | NUR ---
MAKES NEEDS KNOWN, GIRLFRIEND VALDEZ HELPFUL WITH CARE, DENIES PAIN PRESENTLY, COMPLAINED OF EPIGASTRIC PAIN, MEDICATED WITH PO OXYCODONE, HEPARIN GTT AT 52.9 ML/HR, NO INCREASE CHANGES TODAY TO HEPARIN. BM TODAY, CALL LIGHT WITH IN REACH, NO ACUTE CHANGES, REPORT TO SARAH CHOU
--- NOTE | 2022-02-20 08:04 | NUR ---
PATIENT HAD NO EPISODES OF FEELING SOB,ANXIOUS AND CHEST PRESSURE OVERNIGHT. MEDICATED TWICE WITH FENTANYL AND OXYCODONE FOR BREAKTHROUGH PAIN. PAIN STILL POORLY CONTROLLED. OF NOTE, PATIENT MENTIONED EPIGASTRIC AND RLQ/FLANK ACUTE P AIN SHORTLY AFTER MEAL. MD NOTIFIED AND PROTONIX ORDERED AC BREAKFAST. HEPARIN REMAINS AT 42 UNITS/KG/HOUR OR 52.9 ML/HR. NEXT PTT TO BE DRAWN AT 1300. NO OTHERE CHANGES NOTED OVERNIGHT
[2022-02-20 13:07] LABS: Hematocrit 26.4 % (37.0-53.0); Hemoglobin 8.2 g/dL (13.5-17.5); Mean Platelet Volume 8.6 fL (9.1-12.4); Platelet Count 536 K/mm3 (150-400)
--- NOTE | 2022-02-20 17:33 | NUR ---
Visit with pt today, his s/o at bedside. Pt states he's pretty sure he's discharging tomorrow, and he states he's "more than ready". He reports his pain and SOB are both minimal and tolerable. He doesn't yet have a new appt with Dr. Arce, but it's his understanding he will be seen when Dr. Arce has his biopsy results. Pt remains alert, oriented and pleasant. He denied any new concerns or questions at this time.
--- NOTE | 2022-02-20 18:28 | NUR ---
SHIFT SUMMARY HEPARIN WAS STOPPED THIS AFTERNOON AND PT STARTED ON XARELTO. MEDICATED FOR PAIN X2 THIS SHIFT. PT HAS HAD A GOOD APPETITE. PT HAS HAD MULTIPLE VISITORS IN THE ROOM BUT HAS NAPPED WHEN NO ONE VISITING. NO ACUTE CHANGES THIS SHIFT. WILL CONTINUE TO MONITOR. WILL REPORT TO ONCOMING RN.
--- NOTE | 2022-02-21 03:48 | NUR ---
SOIL CONSERVATION TECHNICIAN SUMMARY VSS. HAS BEEN RESTING QUIETLY WITH FEW INTERRUPTIONS. RESPS EVEN. ANALGESICS ORDERED - SEE MAR FOR DETAILS. O2 AT 4L/MIN. MED TELE ST. LUNG SOUNDS DIMINISHED BUT NO NOTED CRACKLES. UP AD EMILIE. NO NOTED S/S ACUTE PHYSICAL DISTRESS AT THIS TIME. CALL LIGHT IN REACH.
[2022-02-21 05:50] LABS: BASOPHILS ABSOLUTE AUTO 0.05 K/mm3 (0.00-0.23); BASOPHILS PERCENT AUTO 0 % (0-2); EOSINOPHILS ABSOLUTE AUTO 0.36 K/mm3 (0.00-0.68); EOSINOPHILS PERCENT AUTO 2 % (0-6); Hematocrit 26.5 % (37.0-53.0); Hemoglobin 8.2 g/dL (13.5-17.5); IMMATURE GRAN ABSOLUTE AUTO 0.11 K/mm3 (0.00-0.10); IMMATURE GRAN PERCENT AUTO 1 % (0-1); LYMPHOCYTES ABSOLUTE AUTO 0.78 K/mm3 (0.84-5.20); LYMPHOCYTES PERCENT AUTO 5 % (21-46); MONOCYTES ABSOLUTE AUTO 1.81 K/mm3 (0.16-1.47); MONOCYTES PERCENT AUTO 12 % (4-13); Mean Corpuscular HGB 22.8 pg (26.0-34.0); Mean Corpuscular HGB Conc 30.9 g/dL (31.5-36.5); Mean Corpuscular Volume 74 fL (80-100); Mean Platelet Volume 8.9 fL (9.1-12.4); NEUTROPHILS ABSOLUTE AUTO 12.09 K/mm3 (1.96-9.15); NEUTROPHILS PERCENT AUTO 80 % (41-73); Platelet Count 560 K/mm3 (150-400); RDW Coefficient Variation 14.6 % (11.7-14.2); RDW Standard Deviation 38.7 fL (35.1-46.3)
[2022-02-21 06:07] LABS: Anion Gap 9 mmol/L (6-16); Blood Urea Nitrogen 14 mg/dL (8-24); Bun/Creatinine Ratio 25.3 (12.0-20.0); CO2, Blood 27 mmol/L (21-32); Calcium, Blood 9.2 mg/dL (8.5-10.1); Chloride, Blood 92 mmol/L (98-108); Creatinine, Blood 0.55 mg/dL (0.60-1.20); Glomerular Filtration Rate 133 (60-); Glucose, Blood 99 mg/dL (70-99); Magnesium, Blood 2.1 mg/dL (1.6-2.4); Phosphorus, Blood 4.2 mg/dL (2.5-4.9); Potassium, Blood 4.8 mmol/L (3.5-5.5); Sodium, Blood 128 mmol/L (136-145)
[2022-02-21] MEDS ORDERED: Nicoderm Cq1 EAC1 TOP ×2 (09:09)
[2022-02-21] MEDS ORDERED: PANT40 PO ×2 (09:10)
[2022-02-21] MEDS ORDERED: MIRALAX17 GM PO ×2 (09:10)
[2022-02-21] MEDS ORDERED: SODCHL1 PO ×2 (09:11)
[2022-02-21] MEDS ORDERED: BUME1 PO ×2 (09:11)
--- NOTE | 2022-02-21 13:08 | NUR ---
Spiritual Care Visit. Pt. is awake in bed and welcomes my visit. Female family member is present (sister?). Pt. is unsettled about delays in getting both biopsy results and oxygen plan for home, prior to discharge. Attempted to normalize the Pt. experience. Listen empathetically with a calming presence and established rapport, Pt. diplsayed evidence of realistic hope and trust. Facilitated a short life review of extanded families involvement in heriberto. Another family came to the room. Pt. verbalized gratitude for the spiritual care visit.
--- NOTE | 2022-02-21 17:25 | NUR ---
DISCHARGE SUMMARY PT AxOx4. PLEASANT AND COOPERATIVE WITH CARE. PT DISCHARGING HOME TODAY WITH FAMILY. PT MEDICATED FOR PAIN PER EMAR. MEDICAL SUPPLIES DELIEVERED PRIOR TO DC INCLUDING HOME O2. HARD SCRIPTS FOR PAIN MEDS GIVEN TO PATIENT. DC INSTRUCTIONS PROVIDED INCLUDING FOLLOW UP APPOINTMENTS, DC MEDICATION LIST AND PATIENT EDUCATION. PT VERBALIZES UNDERSTANDING AND DENIES FURTHER QUESTIONS AT THIS TIME. PT SAFELY ESCORTED OUT VIA WC WITH FAMILY AND THERMOFORMING OPERATOR.
== END 2022-02-21 17:15 | disposition home health service (06) | DRG 180 ==
LOC: ER 05:51 → MEDS 09:31
PROVIDERS: Family Medicine; Student in an Organized Health Care Education/Training Program; ADMIT Family Medicine
PROC: 0W9B3ZZ Drainage of Left Pleural Cavity, Percutaneous Approach (ICD-10-PCS; principal; 2022-02-15)
DX: C34.90 Malignant neoplasm of unspecified part of unspecified bronchus or lung (principal); E43 Unspecified severe protein-calorie malnutrition; J96.01 Acute respiratory failure with hypoxia; J18.9 Pneumonia, unspecified organism; I82.401 Acute embolism and thrombosis of unspecified deep veins of right lower extremity; R64 Cachexia; Z68.1 Body mass index [BMI] 19.9 or less, adult; E87.1 Hypo-osmolality and hyponatremia; J91.0 Malignant pleural effusion; I31.31 Malignant pericardial effusion in diseases classified elsewhere; K59.00 Constipation, unspecified; F17.200 Nicotine dependence, unspecified, uncomplicated; Z88.0 Allergy status to penicillin; Z79.899 Other long term (current) drug therapy; Z98.890 Other specified postprocedural states
CPT/HCPCS: 0241U; 32555; 36415; 36416; 71045; 80053; 80069; 83605; 83735; 83880; 84145; 84484; 85014; 85018; 85025; 85049; 85610; 85730; 87040; 93005; 93010; 93308; 93321; 94660; 94760; 94761; 97162; 97166; 97530; 97535; A9270; J0456; J0696; J1644; J1940; J3010; J7050; P9047

== ENCOUNTER 2022-02-26 08:58 | Emergency (ER) | payer OTHER ==
[~2022-02-26] VITALS: Ht 182.9 cm; Wt 63.5 kg
[~2022-02-26 08:58] MED LIST changes: +BUME1 PO; +MIRALAX17 GM PO; +Nicoderm Cq1 EAC1 TOP; +OXAYDO5 M1 PO; +PANT40 PO; +SODCHL1 PO
[2022-02-26 10:13] LABS: BASOPHILS PERCENT AUTO 1 % (0-2); EOSINOPHILS ABSOLUTE AUTO 0.23 K/mm3 (0.00-0.68); EOSINOPHILS PERCENT AUTO 1 % (0-6); Hematocrit 24.8 % (37.0-53.0); IMMATURE GRAN ABSOLUTE AUTO 0.11 K/mm3 (0.00-0.10); IMMATURE GRAN PERCENT AUTO 1 % (0-1); LYMPHOCYTES ABSOLUTE AUTO 0.77 K/mm3 (0.84-5.20); LYMPHOCYTES PERCENT AUTO 4 % (21-46); MONOCYTES ABSOLUTE AUTO 2.03 K/mm3 (0.16-1.47); MONOCYTES PERCENT AUTO 10 % (4-13); Mean Corpuscular HGB 23.4 pg (26.0-34.0); Mean Corpuscular HGB Conc 32.3 g/dL (31.5-36.5); Mean Corpuscular Volume 73 fL (80-100); Mean Platelet Volume 8.9 fL (9.1-12.4); NEUTROPHILS ABSOLUTE AUTO 16.59 K/mm3 (1.96-9.15); NEUTROPHILS PERCENT AUTO 84 % (41-73); Platelet Count 492 K/mm3 (150-400); RDW Coefficient Variation 14.6 % (11.7-14.2); RDW Standard Deviation 38.3 fL (35.1-46.3); Red Blood Cell Count 3.42 M/mm3 (4.30-5.90); White Blood Cell Count 19.83 K/mm3 (4.00-11.30)
[2022-02-26 10:36] LABS: Albumin, Blood 2.1 g/dL (3.4-5.0); Albumin/Globulin Ratio 0.4 (0.8-1.8); Bilirubin, Total 0.5 mg/dL (0.1-1.0); Bun/Creatinine Ratio 31.4 (12.0-20.0); Calcium, Blood 9.1 mg/dL (8.5-10.1); Creatinine, Blood 0.57 mg/dL (0.60-1.20); Globulin, Blood 5.1 g/dL (2.2-4.0); Potassium, Blood 4.1 mmol/L (3.5-5.5); Total Protein, Blood 7.2 g/dL (6.4-8.2)
[2022-02-26] MEDS ORDERED: XARELTO15 MG PO (11:45)
== END 2022-02-26 12:15 | disposition home or self-care (01) ==
LOC: ER 08:58
PROVIDERS: Emergency Medicine
DX: I82.453 Acute embolism and thrombosis of peroneal vein, bilateral (principal); I82.433 Acute embolism and thrombosis of popliteal vein, bilateral; F17.210 Nicotine dependence, cigarettes, uncomplicated; Z88.0 Allergy status to penicillin; Z79.899 Other long term (current) drug therapy; Z79.01 Long term (current) use of anticoagulants
CPT/HCPCS: 36415; 71045; 73590; 80053; 83880; 85025; 93970; 99284-25; A9270

== ENCOUNTER 2022-03-03 22:37 | Emergency (ER) | payer OTHER ==
[~2022-03-03] VITALS: Ht 182.9 cm; Wt 63.5 kg
[2022-03-05] MEDS ORDERED: CITRATE OF MAG296 M4 PO (10:58)
[2022-03-05] MEDS ORDERED: CONSTULOSE10 GM/155 PO (10:58)
[2022-03-05] MEDS ORDERED: ADULT GLYCERIN1 EACH PR (10:58)
== END 2022-03-04 01:07 | disposition home or self-care (01) ==
LOC: ER 22:37
DX: R60.0 Localized edema (principal); K59.00 Constipation, unspecified; F17.210 Nicotine dependence, cigarettes, uncomplicated; Z79.01 Long term (current) use of anticoagulants; Z88.0 Allergy status to penicillin; Z79.899 Other long term (current) drug therapy
CPT/HCPCS: 99283; A9270

== ENCOUNTER 2022-03-05 09:39 | Emergency (ER) | payer OTHER ==
[~2022-03-05] VITALS: Ht 182.9 cm; Wt 62.1 kg
[2022-03-05] MEDS ORDERED: CITRATE OF MAG296 M4 PO (10:58)
[2022-03-05] MEDS ORDERED: ADULT GLYCERIN1 EACH PR (10:58)
[2022-03-05] MEDS ORDERED: CONSTULOSE10 GM/155 PO (10:58)
[2022-03-06] MEDS ORDERED: BISA5EC PO (12:01)
== END 2022-03-05 11:06 | disposition home or self-care (01) ==
LOC: ER 09:39
DX: K59.00 Constipation, unspecified (principal); T40.2X5A Adverse effect of other opioids, initial encounter; F17.210 Nicotine dependence, cigarettes, uncomplicated; Z88.0 Allergy status to penicillin; Z79.01 Long term (current) use of anticoagulants; Z79.899 Other long term (current) drug therapy
CPT/HCPCS: 99283; A9270

== ENCOUNTER 2022-03-06 08:51 | Emergency (ER) | payer OTHER ==
[~2022-03-06] VITALS: Ht 182.9 cm; Wt 62.1 kg
[~2022-03-06 08:51] MED LIST changes: +ADULT GLYCERIN1 EACH PR; +CITRATE OF MAG296 M4 PO; +CONSTULOSE10 GM/155 PO
[2022-03-06] MEDS ORDERED: BISA5EC PO (12:01)
== END 2022-03-06 12:18 | disposition home or self-care (01) ==
LOC: ER 08:51
DX: K59.00 Constipation, unspecified (principal)
CPT/HCPCS: 96374; 96375; 99283-25; A9270; J2060; J3010

== ENCOUNTER 2022-03-09 18:42 | Observation (INO) | payer OTHER ==
[~2022-03-09] VITALS: Ht 182.9 cm; Wt 62.4 kg
[~2022-03-09 18:42] MED LIST changes: +BISA5EC PO
[2022-03-09] MEDS ORDERED: DEXA4 PO (19:03)
[2022-03-09 19:25] LABS: BASOPHILS ABSOLUTE AUTO 0.03 K/mm3 (0.00-0.23); BASOPHILS PERCENT AUTO 0 % (0-2); EOSINOPHILS ABSOLUTE AUTO 0.02 K/mm3 (0.00-0.68); EOSINOPHILS PERCENT AUTO 0 % (0-6); Hematocrit 27.2 % (37.0-53.0); IMMATURE GRAN ABSOLUTE AUTO 0.27 K/mm3 (0.00-0.10); IMMATURE GRAN PERCENT AUTO 1 % (0-1); LYMPHOCYTES ABSOLUTE AUTO 0.56 K/mm3 (0.84-5.20); LYMPHOCYTES PERCENT AUTO 3 % (21-46); MONOCYTES ABSOLUTE AUTO 0.19 K/mm3 (0.16-1.47); MONOCYTES PERCENT AUTO 1 % (4-13); Mean Corpuscular HGB 23.6 pg (26.0-34.0); Mean Corpuscular HGB Conc 33.1 g/dL (31.5-36.5); Mean Corpuscular Volume 71 fL (80-100); Mean Platelet Volume 8.8 fL (9.1-12.4); NEUTROPHILS ABSOLUTE AUTO 18.23 K/mm3 (1.96-9.15); NEUTROPHILS PERCENT AUTO 94 % (41-73); Platelet Count 216 K/mm3 (150-400); RDW Coefficient Variation 16.8 % (11.7-14.2); RDW Standard Deviation 37.8 fL (35.1-46.3); Red Blood Cell Count 3.82 M/mm3 (4.30-5.90)
[2022-03-09 19:50] LABS: Albumin, Blood 2.2 g/dL (3.4-5.0); Albumin/Globulin Ratio 0.4 (0.8-1.8); Bilirubin, Total 0.7 mg/dL (0.1-1.0); Bun/Creatinine Ratio 53.1 (12.0-20.0); Calcium, Blood 8.5 mg/dL (8.5-10.1); Creatinine, Blood 0.45 mg/dL (0.60-1.20); Globulin, Blood 4.9 g/dL (2.2-4.0); Potassium, Blood 3.6 mmol/L (3.5-5.5); Total Protein, Blood 7.1 g/dL (6.4-8.2)
[2022-03-10 04:36] LABS: International Normalized Ratio 1.75; Prothrombin Time Results 17.7 Sec (9.7-11.5)
[2022-03-10 04:46] LABS: Bun/Creatinine Ratio 46.7 (12.0-20.0); Calcium, Blood 8.3 mg/dL (8.5-10.1); Creatinine, Blood 0.49 mg/dL (0.60-1.20); Potassium, Blood 3.1 mmol/L (3.5-5.5)
--- NOTE | 2022-03-10 05:03 | NUR ---
SHIFT SUMMARY/ARRIVAL TO PCU6 PT ARRIVED TO PCU AT APPROXIMATELY 0125. SINCE ARRIVAL, PT A&Ox4, BP STABLE, SINUS TACH 100-110's, SpO2> 92% ON PT's BASELINE OXYGEN NEEDS OF 4L VIA NC. DENIES SOB, CP/PRESSURE. PT ORIENTED TO CALL LIGHT AND ROOM. PT CALLS AND COMMUNICATES NEEDS APPROPRIATELY. NO EVENTS SINCE ARRIVAL TO UNIT. WILL REPORT TO DAY SHIFT RN.
--- NOTE | 2022-03-10 18:15 | NUR ---
END OF SHIFT NOTE PT A&O X4. VSS. SPO2 > 92% ON 4L NC WHICH PT REPORTS BEING HOME O2 USE. MONITOR SHOWING ST, HR 100-120s. PT REPORTING BACK PAIN. MEDICATING PAIN PER EMAR/PT REQUEST W/ PT REPORT OF TEMPORARY IMPROVEMENT EACH TIME. NO EVENTS THIS SHIFT.
[2022-03-11 04:43] LABS: Hemoglobin 8.6 g/dL (13.5-17.5); Mean Corpuscular HGB 22.9 pg (26.0-34.0); Mean Corpuscular HGB Conc 31.9 g/dL (31.5-36.5); Mean Corpuscular Volume 72 fL (80-100); Mean Platelet Volume 9.6 fL (9.1-12.4); Platelet Count 121 K/mm3 (150-400); RDW Coefficient Variation 16.4 % (11.7-14.2); RDW Standard Deviation 37.2 fL (35.1-46.3); Red Blood Cell Count 3.76 M/mm3 (4.30-5.90); White Blood Cell Count 20.06 K/mm3 (4.00-11.30)
[2022-03-11 05:02] LABS: Albumin, Blood 2.1 g/dL (3.4-5.0); Anion Gap 11 mmol/L (6-16); Blood Urea Nitrogen 24 mg/dL (8-24); Bun/Creatinine Ratio 43.3 (12.0-20.0); CO2, Blood 29 mmol/L (21-32); Calcium, Blood 7.9 mg/dL (8.5-10.1); Chloride, Blood 88 mmol/L (98-108); Creatinine, Blood 0.55 mg/dL (0.60-1.20); Glomerular Filtration Rate 133 (60-); Glucose, Blood 103 mg/dL (70-99); Magnesium, Blood 1.9 mg/dL (1.6-2.4); Phosphorus, Blood 2.1 mg/dL (2.5-4.9); Potassium, Blood 3.7 mmol/L (3.5-5.5); Sodium, Blood 128 mmol/L (136-145)
--- NOTE | 2022-03-11 06:11 | NUR ---
NOC SHIFT SUMMARY PT SLEPT WELL, ORIENTED X4, VSS PER PT TREND ON 4L NC. COMPLAINTS OF PAIN IN BACK AND LEGS, PRNS GIVEN W/RELIEF. ST ON TELEMETRY. THORACENTESIS SITE CDI. WILL PASS ON TO DAY RN
[2022-03-11 06:27] LABS: BAND PERCENT MAN 12 % (0-8); BASOPHILS PERCENT MAN 0 % (0-2); EOSINOPHILS PERCENT MAN 0 % (0-6); LYMPHOCYTES PERCENT MAN 3 % (21-46); MONOCYTES PERCENT MAN 2 % (4-13); NEUTROPHILS ABSOLUTE MAN 19.05 K/mm3 (1.96-9.15); SEG NEUTROPHILS PERCENT MAN 83 % (41-73); TOTAL CELLS COUNTED 100
[2022-03-11] MEDS ORDERED: POTA20LUD PO (09:37)
[2022-03-11] MEDS ORDERED: FURO20 PO (09:38)
--- NOTE | 2022-03-11 12:50 | NUR ---
DISCHARGE HOME PT A&O X4. VSS. SPO2 > 92% ON 4L NC WHICH IS PT's HOME O2 USE. MONITOR SHOWING ST, HT 100-110s. PT W/ CONTINUED BACK PAIN, MEDICATED PER EMAR/PT REQUEST W/ IMPROVEMENT. DISCHARGE INSTRUCTIONS REVIEWED W/ PT & PT S/O. PIV REMOVED. PT TAKEN OUT BY WHEELCHAIR W/ BELONGINGS @ APPROX 1245.
--- NOTE | 2022-03-11 12:59 | NUR ---
Initial Pal Care visit made prior to pt's d/c home with HH planned today. Pt was groggy and initially receptive to visit but had a hard time "waking up" and was unable to process conversation, questions or answer. He is oriented x4. He appears moderately uncomfortable, anxious and cachectic. He reports sores on his bottom are the most distressing issue and his dyspnea, maria g upon waking. Young woman was sleeping in two chairs pushed together at bedside. She was awake during my visit but did not participate or contribute to converasation. They both look exhausted and withdrawn. Pt aware of d/c home and hh orders. I spoke to him briefly with recommendation of OP Palliative care to help with support, s/s management, advanced care planning, etc. Pt could not cont conversation but did want me to leave information and contact info for both our Pal Care team and [place] OP palliative care team. I spoke to his nurse and electrical sign servicer after putting requested info in Rosas's d/c folder with d/c instructions.
--- NOTE | 2022-03-11 13:08 | NUR ---
I spoke with DELANO re: d/c planning and f/u. She will email pt's [facility] CW to f/u regarding OP Palliative Care program for pt if he decides that will be helpful to him and his family.
== END 2022-03-11 12:41 | disposition home or self-care (01) ==
LOC: ER 18:42 → PCU 22:55 → ER 03-10 01:01 → PCU 03-10 01:24
PROVIDERS: Family Medicine; Student in an Organized Health Care Education/Training Program; ADMIT Internal Medicine
DX: J96.21 Acute and chronic respiratory failure with hypoxia (principal); J90 Pleural effusion, not elsewhere classified; K59.00 Constipation, unspecified; E87.1 Hypo-osmolality and hyponatremia; R65.10 Systemic inflammatory response syndrome (SIRS) of non-infectious origin without acute organ dysfunction; C34.90 Malignant neoplasm of unspecified part of unspecified bronchus or lung; C79.89 Secondary malignant neoplasm of other specified sites; Z88.0 Allergy status to penicillin; Z79.01 Long term (current) use of anticoagulants; Z86.718 Personal history of other venous thrombosis and embolism; Z87.891 Personal history of nicotine dependence; D63.0 Anemia in neoplastic disease; R64 Cachexia
CPT/HCPCS: 32555; 36415; 71045; 80048; 80053; 80069; 83735; 85025; 85610; 93005; 93010; 94762; 96374; 96375; 96376; A9270; G0378; J1940; J3010; J3480; J7050; J7060

== ENCOUNTER 2022-03-18 11:29 | Inpatient (IN) | payer OTHER ==
[~2022-03-18] VITALS: Ht 182.9 cm; Wt 64.0 kg
[~2022-03-18 11:29] MED LIST changes: +DEXA4 PO; +FURO20 PO; +POTA20LUD PO
[2022-03-18 13:18] LABS: BASOPHILS ABSOLUTE AUTO 0.02 K/mm3 (0.00-0.23); BASOPHILS PERCENT AUTO 0 % (0-2); EOSINOPHILS PERCENT AUTO 0 % (0-6); Hematocrit 26.5 % (37.0-53.0); Hemoglobin 8.7 g/dL (13.5-17.5); IMMATURE GRAN ABSOLUTE AUTO 0.15 K/mm3 (0.00-0.10); IMMATURE GRAN PERCENT AUTO 1 % (0-1); LYMPHOCYTES ABSOLUTE AUTO 0.49 K/mm3 (0.84-5.20); LYMPHOCYTES PERCENT AUTO 3 % (21-46); MONOCYTES ABSOLUTE AUTO 1.32 K/mm3 (0.16-1.47); MONOCYTES PERCENT AUTO 9 % (4-13); Mean Corpuscular HGB 23.8 pg (26.0-34.0); Mean Corpuscular HGB Conc 32.8 g/dL (31.5-36.5); Mean Corpuscular Volume 73 fL (80-100); NEUTROPHILS ABSOLUTE AUTO 13.16 K/mm3 (1.96-9.15); NEUTROPHILS PERCENT AUTO 87 % (41-73); NRBC ABSOLUTE 0.03 K/mm3 (0.00-0.02); NRBC Auto 0.2 /100 WBC (0.0-0.2); Platelet Count 161 K/mm3 (150-400); RDW Coefficient Variation 18.8 % (11.7-14.2); RDW Standard Deviation 38.1 fL (35.1-46.3); Red Blood Cell Count 3.65 M/mm3 (4.30-5.90); White Blood Cell Count 15.14 K/mm3 (4.00-11.30)
[2022-03-18 13:30] LABS: Calcium, Blood 9.4 mg/dL (8.5-10.1); Creatinine, Blood 0.54 mg/dL (0.60-1.20); Magnesium, Blood 2.7 mg/dL (1.6-2.4); Potassium, Blood 5.5 mmol/L (3.5-5.5)
[2022-03-18 13:59] LABS: Base Excess Venous 0.2 mmol/L; Bicarbonate Venous 24.3 mmol/L (24.0-30.0); PCO2 Venous 46.7 mmHg (38-42); pH Blood Venous 7.35 (7.34-7.37)
--- NOTE | 2022-03-18 18:27 | NUR ---
OBTAINED PT FROM ER NURSE. PT UNABLE TO SWALLOW. NEEDS SWALLOW EVAL. CRUSHED PAIN MEDS GIVEN BY SYRINGE WITH SMALL AMOUNT OF WATER. PT DOES TOLERATE ICE CHIPS, HAS NOT EATEN FOR 3 DAYS. WILL CONTINUE TO MONTIOR.
--- NOTE | 2022-03-18 19:08 | NUR ---
pt seen in ER per physician request. pt alert but drifts off due to great fatigue. pt very thin some labored breathing. denies headache or ringing in ears. has nasuea nd feels when he swallow it wont go down. pt very frail struggling to stay alert. His girfriend and caregiver is at the bedside. the is disheveled and exhausted and very stressed. She has been taking him to his appoinments and careing for him and his grandmother who has dementia. patient the mother has been working and supporting all of them. they have started the medicaid process. pt has rectly started treatment. 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 He has started treatment. his girlfriend relayed she did not finish hisgh school and is trying to go back and get her GED.She is hoping to be a paid caregiver for him so she has some income. suggested she go online and get set up with a GED program. Review of her needs with ousmane the social worker aide and he is going to review resources with her. She does not have any income. Will review with admitting physician and dr acosta SCREEN TENDER HELPER on sunday and get them some resources.
--- NOTE | 2022-03-19 00:03 | NUR ---
PATIENT USED CALL LIGHT TO CALL RN STATING HAVING DIFFICULTY BREATHING. SATS 100% ON 5L/min VIA NC. CALL TO RT WHO IS PLACING PT ON HIGH-FLOW O2 AND CPAP. ALSO SPOKE WITH AURELIO HOSPITALIST, WHO CHANGED PT MEDS FROM PO TO IV. XARELTO CHANGED TO LOVENOX. PAIN MEDS FROM PO OXY TO IV FENTANYL, NPO DIET ORDERED AND CONSULT FOR PALLIATIVE CARE. PT IS CURRENTLY FULL CODE; GIRLFRIEND STATES THEY HAVE TALKED KNOW THEY NEED TO MAKE ALTERNATIVE PLANS GIVEN HIS CURRENT CONDITION. TOLD HER WE CAN HAVE PALLIATIVE CARE AND PROVIDER DISCUSS FURTHER BUT THAT THIS RN IS HERE TO DISCUSS IF THEY WOULD LIKE. CONCERNS R/T PT HAVING ISSUES TONIGHT AND BEING A FULL CODE. WILL CLARIFY HEALTHCARE PROXY AND DECISOIN MAKER.
[2022-03-19 02:26] LABS: BASOPHILS ABSOLUTE AUTO 0.01 K/mm3 (0.00-0.23); BASOPHILS PERCENT AUTO 0 % (0-2); EOSINOPHILS PERCENT AUTO 0 % (0-6); Hematocrit 24.1 % (37.0-53.0); Hemoglobin 7.9 g/dL (13.5-17.5); IMMATURE GRAN ABSOLUTE AUTO 0.12 K/mm3 (0.00-0.10); IMMATURE GRAN PERCENT AUTO 1 % (0-1); LYMPHOCYTES ABSOLUTE AUTO 0.54 K/mm3 (0.84-5.20); LYMPHOCYTES PERCENT AUTO 4 % (21-46); MONOCYTES ABSOLUTE AUTO 1.25 K/mm3 (0.16-1.47); MONOCYTES PERCENT AUTO 9 % (4-13); Mean Corpuscular HGB 23.8 pg (26.0-34.0); Mean Corpuscular HGB Conc 32.8 g/dL (31.5-36.5); Mean Corpuscular Volume 73 fL (80-100); Mean Platelet Volume 10.7 fL (9.1-12.4); NEUTROPHILS ABSOLUTE AUTO 12.37 K/mm3 (1.96-9.15); NEUTROPHILS PERCENT AUTO 87 % (41-73); NRBC ABSOLUTE 0.04 K/mm3 (0.00-0.02); NRBC Auto 0.3 /100 WBC (0.0-0.2); Platelet Count 141 K/mm3 (150-400); RDW Standard Deviation 38.1 fL (35.1-46.3); Red Blood Cell Count 3.32 M/mm3 (4.30-5.90); White Blood Cell Count 14.29 K/mm3 (4.00-11.30)
[2022-03-19 02:28] LABS: Base Excess Venous -1.7 mmol/L; PCO2 Venous 37.7 mmHg (38-42); PO2 Venous 56.2 mmHg (38-42)
[2022-03-19 02:50] LABS: Albumin, Blood 2.1 g/dL (3.4-5.0); Albumin/Globulin Ratio 0.5 (0.8-1.8); Bun/Creatinine Ratio 92.6 (12.0-20.0); Calcium, Blood 8.3 mg/dL (8.5-10.1); Creatinine, Blood 0.66 mg/dL (0.60-1.20); Globulin, Blood 4.2 g/dL (2.2-4.0); Potassium, Blood 5.2 mmol/L (3.5-5.5); Total Protein, Blood 6.3 g/dL (6.4-8.2)
--- NOTE | 2022-03-19 05:23 | NUR ---
ARRIVAL TO [facility] / SHIFT SUMMARY PT ARRIVED TO [facility] AT APPROXIMATELY 0320. SLIDE PT [facility] TO [facility] BED WITH 4 CLINICAL STAFF MEMBERS. PT ARRIVED ON NON-REBREATHER WITH SpO2> 92%, RT TRANSITIONED PT TO AIRVO 30L/40% FiO2, SpO2> 92%. RR ELEVATED IN 20's, PT REPORTS FEELING LIKE HE ISN'T GETTING ENOUGH AIR BUT THAT HE DOESN'T LIKE THE HIGH FLOW O2, RT AT BEDSIDE TRYING TO MAKE PT COMFORTABLE. BP SOFT WITH SBP 80's, MAP >65, PT ASYMPTOMATIC. SINUS 80's WITH PAC's. GIRLFRIEND AT BEDSIDE ASSISTING WITH CARE AND COMMUNICATION. PT A&Ox4, D/T CONDITION PT HAS DIFFICULTY SAYING LONG SENTENCES. PT NPO. SUCTION SET UP AND SHOWED PT HOW TO USE SUCTION YANKAUER TO HELP WITH EXCESS SALIVA. PT WISHES TO BE A FULL CODE. ORIENTED PT AND VISITOR TO CALL LIGHT. BED IN LOWEST POSITION. RR WHEN SLEEPING IS 12-16, SpO2> 92% ON 30L/40% FiO2 VIA AIRVO. REASSESSED BP IS 113/71. PT STATES THAT HE IS STILL FEELING SOB BUT THAT IT IS A LITTLE BETTER THAN BEFORE. PT DENIES CP/PRESSURE AND PAIN IN GENERAL. PT RESTING COMFORTABLY. NO OTHER EVENTS SINCE ARRIVAL TO UNIT. WILL REPORT TO DAY SHIFT RN.
[2022-03-19 17:26] LABS: BASOPHILS ABSOLUTE AUTO 0.01 K/mm3 (0.00-0.23); BASOPHILS PERCENT AUTO 0 % (0-2); EOSINOPHILS ABSOLUTE AUTO 0.01 K/mm3 (0.00-0.68); EOSINOPHILS PERCENT AUTO 0 % (0-6); Hematocrit 23.2 % (37.0-53.0); Hemoglobin 7.6 g/dL (13.5-17.5); IMMATURE GRAN ABSOLUTE AUTO 0.13 K/mm3 (0.00-0.10); IMMATURE GRAN PERCENT AUTO 1 % (0-1); LYMPHOCYTES ABSOLUTE AUTO 0.41 K/mm3 (0.84-5.20); LYMPHOCYTES PERCENT AUTO 3 % (21-46); MONOCYTES ABSOLUTE AUTO 0.88 K/mm3 (0.16-1.47); MONOCYTES PERCENT AUTO 7 % (4-13); Mean Corpuscular HGB 24.2 pg (26.0-34.0); Mean Corpuscular HGB Conc 32.8 g/dL (31.5-36.5); Mean Corpuscular Volume 74 fL (80-100); Mean Platelet Volume 10.8 fL (9.1-12.4); NEUTROPHILS ABSOLUTE AUTO 11.84 K/mm3 (1.96-9.15); NEUTROPHILS PERCENT AUTO 89 % (41-73); NRBC ABSOLUTE 0.07 K/mm3 (0.00-0.02); NRBC Auto 0.5 /100 WBC (0.0-0.2); Platelet Count 121 K/mm3 (150-400); RDW Coefficient Variation 20.1 % (11.7-14.2); RDW Standard Deviation 38.9 fL (35.1-46.3); Red Blood Cell Count 3.14 M/mm3 (4.30-5.90); White Blood Cell Count 13.28 K/mm3 (4.00-11.30)
--- NOTE | 2022-03-19 17:27 | NUR ---
Transfer note This am, pt waking to verbal stimuli, oriented x3, slow to respond with garbled speech, at times pt will write on pad of paper. Pt reporting lower back pain/coccyx pain, medicated x2 with roxicodone with minimal response. Pt and family worried regarding nutrition, at bedside this am, new order for clinimix at 50 cc/hr. Pt sob at rest, breathing shallow, gasping at times, tachypnic but shyanne while sleeping. Spo2 >96% on airvo, this am 30l 40%fio2, titrated to 40l 40fio2 this am, ls clear t/o, diminished in bases, right worse than left. Pt in peres position. Tele sinus 80's ekg this am, QTc prolonged, MD aware, echo ordered, completed this aftenoon. Pt bp soft t/o shift, trending down this afternoon, map <60, md notified, new orders for ns 500cc bolus, no lasting response noted, new order to transfer to icu on levophen and additional ns 500cc bolus given, stopped midway due to worsening work of breathing. temp 95-96, warm blanket t/o shift, this afternoon bear warmer placed. Pt transfered to ICU at approx 1700, bedside report given to Rn assuming care of patient.
[2022-03-19 17:52] LABS: Magnesium, Blood 2.6 mg/dL (1.6-2.4)
[2022-03-19 18:02] LABS: Albumin/Globulin Ratio 0.5 (0.8-1.8); Bilirubin, Total 1.9 mg/dL (0.1-1.0); Bun/Creatinine Ratio 78.9 (12.0-20.0); Calcium, Blood 7.9 mg/dL (8.5-10.1); Creatinine, Blood 0.9 mg/dL (0.60-1.20); Phosphorus, Blood 6.3 mg/dL (2.5-4.9); Potassium, Blood 5.1 mmol/L (3.5-5.5)
[2022-03-19 18:12] LABS: Acetaminophen, Random <2.0 ug/mL (10.0-30.0); Glutamyl Transpeptidase, GGT 95 U/L (15-85); Lactate Dehydrogenase (Ld),Bld 686 U/L (100-240)
--- NOTE | 2022-03-19 19:02 | NUR ---
TX NOTE PT TX TO ICU 2 FROM PCU, TRANSFERRED TO BED VIA SLIDER SHEET. PT ALERT AND ORIENTED UPON ARRIVAL BUT DIFFICULT TO UNDERSTAND WITH SLURRED SPEACH. PT WEAK BUT MOVING ALL EXTREMITIES, FOLLOWING COMMANDS. PT HYPOTENSIVE c MAP <65, LOW DOSE LEVOPHED INITIATED VIA PERIPHERAL IV. IV DAVID BACK BLOOD AND FLUSHED WELL. BP AT ACCEPTABLE PRESSURE WITH 4MCG LEVOPHED, MAP CURRENTLTY 66. NSR ON THE GAS ENGINE MECHANIC. PT APPEARS DYSPNEIC c AIRVO @ 50L/ 50%, O2 SATS >95%, LS COARSE ON R SIDE. PT CORE TEMP VIA RECTAL THERMOMETER <94, NEO HUGGER APPLIED, TEMP SLOWLY INCREASING. PT NOT ABLE TO VOID YET, ATTEMPTED TO USE URINAL WITHOUT LUCK, ONCOMING NURSE AWARE. REPORT GIVEN TO ONCOMING NURSE.
[2022-03-19 19:13] LABS: International Normalized Ratio 4.07
[2022-03-19 20:07] LABS: Source, Urine Voided
[2022-03-19 20:17] LABS: Appearance, Urine Hazy (Clear); Blood, Urine 5+ (Neg); Color, Urine Amber (P-Yellow); Glucose Qualitative, Urine Neg (Neg); Ketones, Urine Neg (Neg); Leukocyte Esterase, Urine 1+ (Neg); Nitrite, Urine Neg (Neg); Protein, Urine 2+ (Neg); Urobilinogen, Urine 2+ (Normal)
[2022-03-19 21:12] LABS: Bilirubin, Urine 1+ (Neg)
[2022-03-19 21:17] LABS: Bacteria Many /hpf; Mucus Light (0-Heavy); Red Blood Cells, Urine 25-50 /hpf (0-2); Squamous Epithelial Cells Few /hpf (Few)
[2022-03-19 21:18] LABS: Amorphous Mod (0-Heavy)
--- NOTE | 2022-03-19 22:35 | NUR ---
HAD LONG TALK THIS EVENING WITH DR. ENCISO AND PT AND GIRLFRIEND AT BEDSIDE REGARDING PT PROGNOSIS AND CODE STATUS. AFTER REVIEWING ALL THE RESULTS OF TESTS AND DISCUSSING PT CANCER AND CURRENT SITUATION PT HAS DECIDED HE WANTS TO BE A DNR AND SWITCH GOALS TO GOING HOME ON HOSPICE TO SPEND QUALITY TIME WITH FAMILY. PT WISHES TO BE KEPT COMFORTABLE. WILL CONTINUE TO MONITOR.
--- NOTE | 2022-03-20 05:22 | NUR ---
END OF SHIFT SUMMARY PT NOW DNR AND GOING TO TRANSITION HOME ON HOSPICE TODAY WITH FAMILY. PT ON LEVO TO SUPPORT MAP GREATER THAN 55 PER ORDERS. PT STILL HAS AIRHUNGER RELIEVED WITH SL MORPHINE. PT IN AND OUT OF RESPONSIVENESS. POTENTIALLY MAY GO COMFORT IF SYMPTOMS WORSEN PRIOR TO GETTING HOME ON HOSPICE.
--- NOTE | 2022-03-20 06:24 | NUR ---
PT HAS GOTTEN WORSE AND IS NOW MINIMALLY RESPONSIVE. BP HAS DECREASED DESPITE LEVO SUPPORT. FAMILY AT BEDSIDE DISCUSSING WHETHER THEY WILL WANT TO GO COMFORT MEASURES THIS MORNING OR TRY TO MAKE IT HOME ON HOSPICE. WILL GIVE BEDSIDE REPORT TO ONCOMING RN.
--- NOTE | 2022-03-20 06:38 | NUR ---
FAMILY HAS DECIDED TO GO COMFORT MEASURES NOTIFIED DR. HALEY WHO IS GOING TO COME TO PT BEDSIDE.
--- NOTE | 2022-03-20 08:01 | NUR ---
After receiving a call from the RN [employer] Manager, I visit with family of pt. They are grieving appropriately and are struggling with the spiritual questions connected to and the afterlife. I provide therapeutic listening, theological insights, grief support and prayer. Family respond well and show signs of being comforted.
--- NOTE | 2022-03-20 08:28 | NUR ---
FINAL PTS TIME OF 0700. MOTHER AND S/O AT BEDSIDE. BELONGINGS SENT HOME WITH S/O. [facility] ARRIVEED @ 0825 TO TAKE THE DEPARTED.
[2022-03-22 00:10] LABS: HBSAG SCREEN Negative (Negative); HCV AB <0.1 (0.0-0.9); HEP A AB, IGM Negative (Negative); HEP B CORE AB, IGM Negative (Negative)
== END 2022-03-20 08:30 | DRG 189 ==
LOC: ER 11:29 → ICUE 15:58 → MEDS 15:58 → PCU 03-19 03:15 → ICUE 03-19 17:04
PROVIDERS: Family Medicine; Student in an Organized Health Care Education/Training Program; ADMIT Internal Medicine
DX: J96.21 Acute and chronic respiratory failure with hypoxia (principal); C34.90 Malignant neoplasm of unspecified part of unspecified bronchus or lung; R64 Cachexia; E87.1 Hypo-osmolality and hyponatremia; Z68.1 Body mass index [BMI] 19.9 or less, adult; C79.51 Secondary malignant neoplasm of bone; C79.89 Secondary malignant neoplasm of other specified sites; C78.7 Secondary malignant neoplasm of liver and intrahepatic bile duct; I82.401 Acute embolism and thrombosis of unspecified deep veins of right lower extremity; Z51.5 Encounter for palliative care; F45.8 Other somatoform disorders; E86.0 Dehydration; E86.1 Hypovolemia; Z79.899 Other long term (current) drug therapy; Z79.01 Long term (current) use of anticoagulants; Z88.0 Allergy status to penicillin; Z86.711 Personal history of pulmonary embolism; Z87.891 Personal history of nicotine dependence
CPT/HCPCS: 36415; 51702; 70491; 71045; 71250; 76705; 80048; 80053; 80074; 81001; 82803; 82947; 82977; 83605; 83615; 83735; 83880; 83935; 84100; 84145; 84300; 85025; 85610; 87086; 93005; 93010; 93308; 93321; 94640; 94664; 94760; A9270; C9113; G0480; J0692; J0696; J1170; J1650; J2060; J2270; J3010; J3370; J7030; J7040; J7050; Q9967